=== PATIENT | female | born 1955 | race Caucasian/White ===

== ENCOUNTER 2020-08-04 11:11 | Outpatient (REF) | payer OTHER, SELFPAY ==
--- NOTE | ~2020-08-04 | MM_ITS ---
EXAMINATION: MM SCREENING DIGITAL BREAST TOMOSYNTHESIS, BILATERAL CLINICAL INFORMATION: Screening. Asymptomatic. The lifetime risk of breast cancer based on the Tyrer-Cuzick Model is 7%. COMPARISON: Mammography: 03/10/2019, 01/01/2018, 11/19/2016 TECHNIQUE: Digital breast tomosynthesis is performed in both the craniocaudal and mediolateral oblique views along with computer-aided detection (CAD). Synthesized 2D images are generated from the tomosynthesis. FINDINGS: There are scattered areas of fibroglandular density (ACR BI-RADS breast composition Category b). There are no significant masses, abnormal calcifications, or other abnormalities. The skin contours are unremarkable. MM/MM tomosynthesis screening BI IMPRESSION: No mammographic evidence of malignancy. ASSESSMENT: BI-RADS 1: Negative RECOMMENDATION: Routine annual mammography screening. This patient's information was entered into a reminder system with a target due date for their next mammogram.
== END 2020-08-04 11:12 | disposition home or self-care (01) ==
LOC: HO.MAMMO 11:11
PROVIDERS: Visit Provider Internal Medicine
DX: Z12.31 Encounter for screening mammogram for malignant neoplasm of breast (principal)
CPT/HCPCS: 77063; 77067

== ENCOUNTER 2021-08-06 11:17 | Outpatient (REF) | payer OTHER, SELFPAY ==
--- NOTE | ~2021-08-06 | MM_ITS ---
EXAMINATION: MM SCREENING DIGITAL BREAST TOMOSYNTHESIS, BILATERAL CLINICAL INFORMATION: Screening. Asymptomatic. The lifetime risk of breast cancer based on the Tyrer-Cuzick Model is 8%. COMPARISON: Mammography: 08/04/2020, 03/10/2019, 01/01/2018 TECHNIQUE: Digital breast tomosynthesis is performed in both the craniocaudal and mediolateral oblique views along with computer-aided detection (CAD). Synthesized 2D images are generated from the tomosynthesis. FINDINGS: There are scattered areas of fibroglandular density (ACR BI-RADS breast composition Category b). There are no significant masses, abnormal calcifications, or other abnormalities. No developing density. No significant changes. MM/MM tomosynthesis screening BI IMPRESSION: No mammographic evidence of malignancy. ASSESSMENT: BI-RADS 1: Negative RECOMMENDATION: Routine annual mammography screening. This patient's information was entered into a reminder system with a target due date for their next mammogram.
== END 2021-08-06 11:18 | disposition home or self-care (01) ==
LOC: HO.MAMMO 11:17
PROVIDERS: Visit Provider Internal Medicine
DX: Z12.31 Encounter for screening mammogram for malignant neoplasm of breast (principal)
CPT/HCPCS: 77063; 77067

== ENCOUNTER 2022-09-17 11:58 | Outpatient (REF) | payer MEDICARE, SELFPAY ==
--- NOTE | ~2022-09-17 | MM_ITS ---
EXAMINATION: MM SCREENING DIGITAL BREAST TOMOSYNTHESIS, BILATERAL CLINICAL INFORMATION: Screening. Asymptomatic. The lifetime risk of breast cancer based on the Tyrer-Cuzick Model is 8.1%. COMPARISON: Mammography: This study is compared with prior exams dating back to 2018. TECHNIQUE: Digital breast tomosynthesis is performed in both the craniocaudal and mediolateral oblique views along with computer-aided detection (CAD). Synthesized 2D images are generated from the tomosynthesis. FINDINGS: There are scattered areas of fibroglandular density (ACR BI-RADS breast composition Category b). There are no significant masses, abnormal calcifications, or other abnormalities. MM/MM tomosynthesis screening BI IMPRESSION: No mammographic evidence of malignancy. ASSESSMENT: BI-RADS BI-RADS 1 - Negative RECOMMENDATION: Routine annual mammography screening. 1 year F/U This examination should not preclude the clinical evaluation of a suspicious palpable abnormality. This patient's information was entered into a reminder system with a target due date for their next mammogram.
== END 2022-09-17 11:59 | disposition home or self-care (01) ==
LOC: HO.MAMMO 11:58
PROVIDERS: PCP Internal Medicine; Visit Provider Internal Medicine
DX: Z12.31 Encounter for screening mammogram for malignant neoplasm of breast (principal)
CPT/HCPCS: 77063; 77067

== ENCOUNTER → 2022-09-17 12:00 | Outpatient (BNV) | payer MEDICARE, SELFPAY | PROVIDERS: PCP Internal Medicine; Visit Provider Radiology Diagnostic Radiology | DX: Z12.31 Encounter for screening mammogram for malignant neoplasm of breast (principal) | CPT/HCPCS: 77063; 77067 ==

== ENCOUNTER 2023-09-23 09:22 | Outpatient (REF) | payer MEDICARE, SELFPAY | END 2023-09-23 09:23 | disposition home or self-care (01) | LOC: HO.MAMMO 09:22 | PROVIDERS: PCP Internal Medicine; Visit Provider Internal Medicine | DX: Z12.31 Encounter for screening mammogram for malignant neoplasm of breast (principal) | CPT/HCPCS: 77063; 77067 ==

== ENCOUNTER → 2023-09-23 09:30 | Outpatient (BNV) | payer MEDICARE, SELFPAY | PROVIDERS: PCP Internal Medicine; Visit Provider Radiology Diagnostic Radiology | DX: Z12.31 Encounter for screening mammogram for malignant neoplasm of breast (principal) | CPT/HCPCS: 77063; 77067 ==

== ENCOUNTER → 2024-05-10 16:08 | Outpatient (BNV) | payer MEDICARE, SELFPAY | PROVIDERS: Visit Provider Clinical Nurse Specialist Psychiatric/Mental Health | DX: F33.2 Major depressive disorder, recurrent severe without psychotic features (principal) | CPT/HCPCS: 99202; 99205 ==

== ENCOUNTER 2024-06-30 11:00 | Outpatient (RCR) | payer MEDICARE, SELFPAY ==
--- NOTE | 2024-05-10 13:43 | P.CONTMS_ITS ---
History of Present Illness General Data Date of Service: 05/10/2024 Reason for consult: Recurrent depression Requesting provider: Demetri Montilla History of Present Illness Pt is a 68 year old retired mother one adult son referred for TMS evaluation for Major Depression recurrent severe without psychotic fetures. Pt reports a 2 month period of worsening depression symptoms despite being on celexa 40mg daily and engaging in psychotherapy. She describes depressed mood, poor concentration, low motivation, low energy, loss of interest in activities, loss of pleasure and enjoyment of activities. She feels disconnected even when around people. she is more isolated since the pandemic, she at times feels awful and doesn't want to get out of bed or leave the house. She is often anxious especially in the morning. She makes herself exercise most days but it is a struggle and in contrast to when she used to look forward to it taking a walk or going to the gym. she often feels spacey and forgetful when she is anxious. She has low appetite but sleep is intact with medication. She has no SI or HI. no signs of psychosis or yovany. She reports a severe episode of depression 30 yrs ago when she became catatonic and psychotic; she was hospitalized at the time and she is fearful of getting that depressed again. She feels like sheis noticing the early signs of the same type of depression coming back. Pts PHQ9= 14 and GAD7= 7. Past Psychiatric History/Medication Trials: One Inpatient hospitalization at [facility] 30 yrs ago for severe depression Past med trials celexa ativan Prozac [facility], 1928–1983 Narrative: no histroy of seizures no cardiac histroy no metal implants no pacemaker no cochlear implants Family History: One of 5 children. she is second youngest. close to her sister. Lost her mother age 18. Grew up in [place]. Graduated with associates in Business. 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 Was volunteering until pandemic. She is single and lives alone. has one adult son whom she does see Social History: see above; Substance History: none Trauma History: loss of mother age 18 Meds/Allergies Meds Narrative: celexa 40 mg daily ativan 0.5mg at bedtime Allergies Allergies Allergy/AdvReac Type Severity Reaction Status Date / Time No Known Allergies Allergy Verified 05/10/24 13:53 Mental Status Exam Mental Status Exam Patient Appearance: Appropriate Patient Orientation: Person, Place, Time and Situation Level of Consciousness: Awake, Appropriate and Alert Patient Behavior: Talkative, Cooperative, Restless and Good Eye Contact Mood Description: Depressed, Anxious and Sad Affect Description: Flat Patient Cognition Impaired: No Ability to Follow Directions: Good Speech Pattern: Soft-Spoken Memory Description: Intact Hallucinations: None Delusions: Not Present Thought Process: Rumination and Slowed Thinking Thought Content: positive for Holliday and positive for Preoccupation Judgement: Good Assessment & Plan Assessment & Plan (1) Major depressive disorder, recurrent severe without psychotic features: Status: Acute Code(s): F33.2 - Major depressive disorder, recurrent severe without psychotic features Plan Pt is candidate fro TMS for the tretment of recurrent depression. She hashad trials of 2 antidepressants and does not want to change antidepressants fro fear of getting worse; she also does not want to add an adjunct agent due to fear of side effects. She has learned about TMS from a conference and would like to try TMS to improve depression and protect from worsening. She has no medical contraindications for TMS. No metal implants including no pacemaker or cochlear implants. no histroy of seizures, migraines or cardiac issues. No history of yovany. Plan: Recommned TMS Total time managing care of this patient today _70___ minutes. Patient educated on: TMS and therapeutic strategies Informed Consent: understands
--- NOTE | 2024-06-01 14:52 | HO.TMSDAILY2 ---
TMS Daily Progress Note Daily TMS Progress Note Date of Service: 06/01/24 Week #: 1 Treatment #(03-25): 1 PHQ-9 Pre-Treatment (-): 14 PHQ-9 Most Recent (03-22): 13 RAE-7 Pre-Treatment (0-21): 7 RAE-7 Most Recent (0-21): 12 Reviewed: TMS Mapping/Re-mapping completed Verification: I have reviewed the TMS Sales And Catering Coordinator Note and agree with the contents. The patient remains a candidate to continue TMS treatment per protocol. Assessment and Plan (1) Major depressive disorder, recurrent severe without psychotic features: Status: Acute Plan continue TMS tx plan Total time managing care of this patient today: 35 minutes.
--- NOTE | 2024-06-24 12:40 | HO.TMSDAILY2 ---
TMS Daily Progress Note Daily TMS Progress Note Date of Service: 06/21/24 Week #: 3 Treatment #(-): 12 PHQ-9 Pre-Treatment (-): 14 PHQ-9 Most Recent (03-22): 11 RAE-7 Pre-Treatment (0-21): 7 RAE-7 Most Recent (0-21): 9 CGI-I Most Recent: 0 = Not Assessed Reviewed: TMS Tech Note Reviewed Verification: I have reviewed the TMS Physician/Allergy/Immunology Note and agree with the contents. The patient remains a candidate to continue TMS treatment per protocol. Assessment and Plan (1) Major depressive disorder, recurrent severe without psychotic features: Status: Acute Plan continue with current treatment plan
--- NOTE | 2024-06-24 12:42 | HO.TMSDAILY2 ---
TMS Daily Progress Note Daily TMS Progress Note Date of Service: 06/22/24 Week #: 3 Treatment #(03-25): 13 PHQ-9 Pre-Treatment (-): 14 PHQ-9 Most Recent (03-22): 11 RAE-7 Pre-Treatment (0-21): 7 RAE-7 Most Recent (0-21): 9 CGI-I Most Recent: 0 = Not Assessed Reviewed: TMS Tech Note Reviewed Verification: I have reviewed the TMS Information Systems Supervisor Note and agree with the contents. The patient remains a candidate to continue TMS treatment per protocol. Assessment and Plan (1) Major depressive disorder, recurrent severe without psychotic features: Status: Acute Plan continue TMS treatment plan
--- NOTE | 2024-07-01 14:36 | HO.TMSDAILY2 ---
TMS Daily Progress Note Daily TMS Progress Note Date of Service: 07/01/24 Week #: 4 Treatment #(-30): 18 PHQ-9 Pre-Treatment (1-): 14 PHQ-9 Most Recent (03-22): 10 RAE-7 Pre-Treatment (0-21): 7 RAE-7 Most Recent (0-21): 7 CGI-I Most Recent: 0 = Not Assessed Reviewed: TMS Mapping/Re-mapping completed (remapping completed; AP/SOA changed slightly and coil lele the same; MT went from 1.06 to 1.05) Verification: I have reviewed the TMS Aircraft Designer Note and agree with the contents. The patient remains a candidate to continue TMS treatment per protocol. Assessment and Plan (1) Major depressive disorder, recurrent severe without psychotic features: Status: Acute (2) RAE (generalized anxiety disorder): Status: Acute Plan continue with TMS with remapping results. Total time managing care of this patient today: 30 minutes.
--- NOTE | 2024-07-15 12:37 | HO.TMSDAILY2 ---
TMS Daily Progress Note Daily TMS Progress Note Date of Service: 07/15/24 Week #: 1 Treatment #(03-25): 2 PHQ-9 Pre-Treatment (-): 14 PHQ-9 Most Recent (03-22): 13 RAE-7 Pre-Treatment (0-21): 7 RAE-7 Most Recent (0-21): 12 CGI-I Most Recent: 0 = Not Assessed Reviewed: TMS Tech Note Reviewed Verification: I have reviewed the TMS Sheet Manufacturing Supervisor Note and agree with the contents. The patient remains a candidate to continue TMS treatment per protocol. Assessment and Plan (1) Major depressive disorder, recurrent severe without psychotic features: Status: Acute Plan continue tms tx plan
--- NOTE | 2024-07-15 12:40 | HO.TMSDAILY2 ---
TMS Daily Progress Note Daily TMS Progress Note Date of Service: 06/07/24 Week #: 1 Treatment #(03-25): 4 PHQ-9 Pre-Treatment (-): 14 PHQ-9 Most Recent (03-22): 10 RAE-7 Pre-Treatment (0-21): 7 RAE-7 Most Recent (0-21): 9 CGI-I Most Recent: 0 = Not Assessed Reviewed: TMS Tech Note Reviewed Verification: I have reviewed the TMS Circulation Sales Representative Note and agree with the contents. The patient remains a candidate to continue TMS treatment per protocol. Assessment and Plan (1) Major depressive disorder, recurrent severe without psychotic features: Status: Acute Plan continue tms tx plan
--- NOTE | 2024-07-15 12:50 | HO.TMSDAILY2 ---
TMS Daily Progress Note Daily TMS Progress Note Date of Service: 06/08/24 Week #: 1 Treatment #(03-25): 5 PHQ-9 Pre-Treatment (-): 14 PHQ-9 Most Recent (03-22): 10 RAE-7 Pre-Treatment (0-21): 7 RAE-7 Most Recent (0-21): 9 CGI-I Most Recent: 0 = Not Assessed Reviewed: TMS Tech Note Reviewed Verification: I have reviewed the TMS Trauma Surgeon Note and agree with the contents. The patient remains a candidate to continue TMS treatment per protocol. Assessment and Plan (1) Major depressive disorder, recurrent severe without psychotic features: Status: Acute Plan continue tms tx plan
--- NOTE | 2024-07-15 12:51 | HO.TMSDAILY2 ---
TMS Daily Progress Note Daily TMS Progress Note Date of Service: 06/10/24 Week #: 2 Treatment #(-): 7 PHQ-9 Pre-Treatment (-): 14 PHQ-9 Most Recent (03-22): 10 RAE-7 Pre-Treatment (0-21): 7 RAE-7 Most Recent (0-21): 9 CGI-I Most Recent: 0 = Not Assessed Reviewed: TMS Tech Note Reviewed Verification: I have reviewed the TMS Risk Management Manager Note and agree with the contents. The patient remains a candidate to continue TMS treatment per protocol. Assessment and Plan (1) Major depressive disorder, recurrent severe without psychotic features: Status: Acute Plan continue tms tx plan
--- NOTE | 2024-07-15 12:52 | HO.TMSDAILY2 ---
TMS Daily Progress Note Daily TMS Progress Note Date of Service: 06/15/24 Week #: 2 Treatment #(-): 9 PHQ-9 Pre-Treatment (-): 14 PHQ-9 Most Recent (03-22): 9 RAE-7 Pre-Treatment (0-21): 7 RAE-7 Most Recent (0-21): 7 CGI-I Most Recent: 0 = Not Assessed Reviewed: TMS Tech Note Reviewed Verification: I have reviewed the TMS Director Of Institutional Research Note and agree with the contents. The patient remains a candidate to continue TMS treatment per protocol. Assessment and Plan (1) Major depressive disorder, recurrent severe without psychotic features: Status: Acute Plan continue tms tx plan
--- NOTE | 2024-07-15 12:53 | HO.TMSDAILY2 ---
TMS Daily Progress Note Daily TMS Progress Note Date of Service: 06/17/24 Week #: 2 Treatment #(-): 10 PHQ-9 Pre-Treatment (-): 14 PHQ-9 Most Recent (03-22): 9 RAE-7 Pre-Treatment (0-21): 7 RAE-7 Most Recent (0-21): 7 CGI-I Most Recent: 0 = Not Assessed Reviewed: TMS Tech Note Reviewed Verification: I have reviewed the TMS Emergency Department Technician Note and agree with the contents. The patient remains a candidate to continue TMS treatment per protocol. Assessment and Plan (1) Major depressive disorder, recurrent severe without psychotic features: Status: Acute Plan continue tms tx plan
--- NOTE | 2024-07-15 12:55 | P.PNPS_ITS ---
TMS Daily Progress Note Daily TMS Progress Note Date of Service: 06/24/24 Week #: 3 Treatment #(-): 15 PHQ-9 Pre-Treatment (-): 14 PHQ-9 Most Recent (03-22): 11 RAE-7 Pre-Treatment (0-21): 7 RAE-7 Most Recent (0-21): 9 CGI-I Most Recent: 0 = Not Assessed Reviewed: TMS Tech Note Reviewed Verification: I have reviewed the TMS Social Welfare Clerk Note and agree with the contents. The patient remains a candidate to continue TMS treatment per protocol. Assessment and Plan (1) Major depressive disorder, recurrent severe without psychotic features: Status: Acute Plan continue tms tx plan
--- NOTE | 2024-07-15 12:56 | P.PNPS_ITS ---
TMS Daily Progress Note Daily TMS Progress Note Date of Service: 06/28/24 Week #: 4 Treatment #(-): 17 PHQ-9 Pre-Treatment (1-): 14 PHQ-9 Most Recent (03-22): 10 RAE-7 Pre-Treatment (0-21): 7 RAE-7 Most Recent (0-21): 7 CGI-I Most Recent: 0 = Not Assessed Reviewed: TMS Tech Note Reviewed Verification: I have reviewed the [employer] Company Laundry Worker Note and agree with the contents. The patient remains a candidate to continue TMS treatment per protocol. Assessment and Plan (1) Major depressive disorder, recurrent severe without psychotic features: Status: Acute Plan continue tms tx plan
--- NOTE | 2024-07-15 12:57 | HO.TMSDAILY2 ---
TMS Daily Progress Note Daily TMS Progress Note Date of Service: 06/29/24 Week #: 4 Treatment #(-30): 18 PHQ-9 Pre-Treatment (1-): 14 PHQ-9 Most Recent (03-22): 10 RAE-7 Pre-Treatment (0-21): 7 RAE-7 Most Recent (0-21): 7 CGI-I Most Recent: 0 = Not Assessed Reviewed: TMS Mapping/Re-mapping completed Verification: I have reviewed the TMS Software Release Manager Note and agree with the contents. The patient remains a candidate to continue TMS treatment per protocol. Assessment and Plan (1) Major depressive disorder, recurrent severe without psychotic features: Status: Acute (2) RAE (generalized anxiety disorder): Status: Acute Plan continue tms tx plna with new mapping determination
--- NOTE | 2024-07-19 16:15 | P.PNPS_ITS ---
TMS Daily Progress Note Daily TMS Progress Note Date of Service: 06/30/24 Week #: 4 Treatment #(-): 19 PHQ-9 Pre-Treatment (1-): 14 PHQ-9 Most Recent (03-22): 10 RAE-7 Pre-Treatment (0-21): 7 RAE-7 Most Recent (0-21): 7 CGI-I Most Recent: 0 = Not Assessed Reviewed: TMS Tech Note Reviewed Verification: I have reviewed the TMS Toilet And Laundry Soap Supervisor Note and agree with the contents. The patient remains a candidate to continue TMS treatment per protocol. Assessment and Plan (1) Major depressive disorder, recurrent severe without psychotic features: Status: Acute (2) RAE (generalized anxiety disorder): Status: Acute Plan Patient tolerating treatment re mapping completed unfortunately to this point no improvement noted
--- NOTE | 2024-07-21 15:52 | HO.TMSDAILY2 ---
TMS Daily Progress Note Daily TMS Progress Note Date of Service: 06/25/24 Week #: 4 Treatment #(-): 16 PHQ-9 Pre-Treatment (-): 14 PHQ-9 Most Recent (03-22): 10 RAE-7 Pre-Treatment (0-21): 7 RAE-7 Most Recent (0-21): 7 CGI-I Most Recent: 0 = Not Assessed Reviewed: TMS Tech Note Reviewed Verification: I have reviewed the TMS Architectural Model Maker Note and agree with the contents. The patient remains a candidate to continue TMS treatment per protocol. Assessment and Plan (1) Major depressive disorder, recurrent severe without psychotic features: Status: Acute (2) RAE (generalized anxiety disorder): Status: Acute Plan Cont tx plan some improvement but limited
--- NOTE | 2024-07-21 15:56 | P.PNPS_ITS ---
TMS Daily Progress Note Daily TMS Progress Note Date of Service: 06/04/24 Week #: 1 Treatment #(03-25): 3 PHQ-9 Pre-Treatment (-): 14 PHQ-9 Most Recent (03-22): 13 RAE-7 Pre-Treatment (0-21): 7 RAE-7 Most Recent (0-21): 7 CGI-I Most Recent: 0 = Not Assessed Reviewed: TMS Tech Note Reviewed Verification: I have reviewed the TMS Professor Of Management Note and agree with the contents. The patient remains a candidate to continue TMS treatment per protocol. Assessment and Plan (1) Major depressive disorder, recurrent severe without psychotic features: Status: Acute (2) RAE (generalized anxiety disorder): Status: Acute Plan tolerating tx gradualinc in mt%
--- NOTE | 2024-07-21 15:59 | P.PNPS_ITS ---
TMS Daily Progress Note Daily TMS Progress Note Date of Service: 06/09/24 Week #: 2 Treatment #(-): 6 PHQ-9 Pre-Treatment (-): 14 PHQ-9 Most Recent (03-22): 10 RAE-7 Pre-Treatment (0-21): 7 RAE-7 Most Recent (0-21): 7 CGI-I Most Recent: 0 = Not Assessed Reviewed: TMS Tech Note Reviewed Verification: I have reviewed the TMS Document Imaging Specialist Note and agree with the contents. The patient remains a candidate to continue TMS treatment per protocol. Assessment and Plan (1) Major depressive disorder, recurrent severe without psychotic features: Status: Acute (2) RAE (generalized anxiety disorder): Status: Acute Plan cont plan of care engaged in tx
--- NOTE | 2024-07-21 16:03 | HO.TMSDAILY2 ---
TMS Daily Progress Note Daily TMS Progress Note Date of Service: 06/11/24 Week #: 2 Treatment #(-): 8 PHQ-9 Pre-Treatment (-): 14 PHQ-9 Most Recent (03-22): 10 RAE-7 Pre-Treatment (0-21): 7 RAE-7 Most Recent (0-21): 7 CGI-I Most Recent: 0 = Not Assessed Reviewed: TMS Tech Note Reviewed Verification: I have reviewed the TMS Material Requisitioner Note and agree with the contents. The patient remains a candidate to continue TMS treatment per protocol. Assessment and Plan (1) Major depressive disorder, recurrent severe without psychotic features: Status: Acute (2) RAE (generalized anxiety disorder): Status: Acute Plan cont plan of care engaged in tx
--- NOTE | 2024-07-21 16:05 | HO.TMSDAILY2 ---
TMS Daily Progress Note Daily TMS Progress Note Date of Service: 06/18/24 Week #: 3 Treatment #(-): 11 PHQ-9 Pre-Treatment (-): 14 PHQ-9 Most Recent (03-22): 9 RAE-7 Pre-Treatment (0-21): 7 RAE-7 Most Recent (0-21): 7 CGI-I Most Recent: 0 = Not Assessed Reviewed: TMS Tech Note Reviewed Verification: I have reviewed the TMS Case Loader Operator Note and agree with the contents. The patient remains a candidate to continue TMS treatment per protocol. Assessment and Plan (1) Major depressive disorder, recurrent severe without psychotic features: Status: Acute (2) RAE (generalized anxiety disorder): Status: Acute Plan Treatment patient relates some periods of anxiety in the morning
--- NOTE | 2024-07-21 16:08 | P.PNPS_ITS ---
TMS Daily Progress Note Daily TMS Progress Note Date of Service: 06/23/24 Week #: 3 Treatment #(03-25): 14 PHQ-9 Pre-Treatment (-): 14 PHQ-9 Most Recent (03-22): 11 RAE-7 Pre-Treatment (0-21): 7 RAE-7 Most Recent (0-21): 7 CGI-I Most Recent: 0 = Not Assessed Reviewed: TMS Tech Note Reviewed Verification: I have reviewed the TMS Cutter Apprentice Hand Note and agree with the contents. The patient remains a candidate to continue TMS treatment per protocol. Assessment and Plan (1) Major depressive disorder, recurrent severe without psychotic features: Status: Acute (2) RAE (generalized anxiety disorder): Status: Acute Plan Continue treatment plan limited response to this point
--- NOTE | 2024-07-21 16:10 | P.PNPS_ITS ---
TMS Daily Progress Note Daily TMS Progress Note Date of Service: 06/30/24 Week #: 4 Treatment #(03-25): 19 PHQ-9 Pre-Treatment (-): 14 PHQ-9 Most Recent (03-22): 11 RAE-7 Pre-Treatment (0-21): 7 RAE-7 Most Recent (0-21): 7 CGI-I Most Recent: 0 = Not Assessed Reviewed: TMS Tech Note Reviewed Verification: I have reviewed the TMS Scientific Laboratory Supervisor Note and agree with the contents. The patient remains a candidate to continue TMS treatment per protocol. Assessment and Plan (1) Major depressive disorder, recurrent severe without psychotic features: Status: Acute (2) RAE (generalized anxiety disorder): Status: Acute Plan Patient may need re mapping continues to feel she has significant dysphoria and anxiety
== END 2024-06-30 11:30 | disposition admitted as inpatient to this hospital (09) ==
LOC: HO.PTMS 11:00
PROVIDERS: Visit Provider Clinical Nurse Specialist Psychiatric/Mental Health
DX: F33.2 Major depressive disorder, recurrent severe without psychotic features (principal); F41.1 Generalized anxiety disorder
CPT/HCPCS: 90867; 90868; 90869

== ENCOUNTER 2024-07-01 11:25 | Inpatient (IN) | payer MEDICARE, OTHER, SELFPAY ==
--- NOTE | 2024-07-01 | ECG_ITS ---
Test Reason : psych Blood Pressure : */* mmHG Vent. Rate : 69 BPM Atrial Rate : 69 BPM P-R Int : 154 ms QRS Dur : 84 ms QT Int : 402 ms P-R-T Axes : 80 61 64 degrees QTcB Int : 430 ms Normal sinus rhythm Normal ECG No previous ECGs available Referred By: Margie Knapp Electronically Signed By: DIGNA NOLASCO
--- NOTE | 2024-07-01 11:27 | ED_ITS ---
HPI - Psych General Chief Complaint: Psychiatric Symptoms Stated Complaint: Crisis Time Seen by Provider: 07/01/24 12:00 Source: patient and family (patient's sister) Mode of arrival: ambulatory Limitations: no limitations History of Present Illness ED Provider: Margie Knapp PA-C HPI Narrative: Patient is a 68 year old assigned female at with a history of depression presenting to the emergency department today with increased depression and suicidal ideation. Patient states that since March of 2024 she has had worsening depression and increased suicidal ideation. Patient denies any dizziness, lightheadedness, abdominal pain, nausea, vomiting, fever, chills, blurry vision, double vision, loss of vision, chest pain, difficulty breathing, shortness of breath, back pain, night sweats, pain with urination, increased urinary frequency, increased urinary urgency, blood in her urine or stool, syncope or a near syncopal episode, recent trauma or falls, bowel incontinence, bladder incontinence, or any other complaints at this time. MD complaint: suicidal ideation and feels depressed Related Data Home Medications ?Medication ?Instructions ?Recorded ?Confirmed brimonidine 0.15 % eye drops 1 drp ophthalmic (eye) Q12H 07/01/24 07/01/24 citalopram 40 mg tablet 40 mg PO DAILY 07/01/24 07/01/24 latanoprost 0.005 % eye drops 1 drp ophthalmic (eye) BEDTIME 07/01/24 07/01/24 lorazepam 0.5 mg tablet 0.5 mg PO BID PRN anxiety 07/01/24 07/01/24 risankizumab-rzaa 150 mg/mL 150 mg subcut Q12W 07/01/24 07/01/24 subcutaneous pen injector (Skyrizi) timolol maleate 0.5 % eye drops 1 drp ophthalmic (eye) Q12H 07/01/24 07/01/24 Allergies Allergy/AdvReac Type Severity Reaction Status Date / Time No Known Allergies Allergy Verified 07/01/24 11:30 Review of Systems 2 Constitutional: Constitutional: Reports no additional constitutional complaints, Denies chills, Denies fever(s) and Denies night sweats Eyes: Eyes: Reports no additional eye complaints, Denies blurry vision, Denies change in vision, Denies diplopia, Denies eye discharge, Denies loss of vision and Denies eye pain ENT: Denies dizziness Cardiovascular: Cardiovascular: Reports no additional cardiovascular complaints, Denies chest pain, Denies lightheadedness, Denies Loss of Consciousness and Denies dyspnea Respiratory: Respiratory: Reports no additional respiratory complaints and Denies dyspnea Gastrointestinal: Gastrointestinal: Reports no additional gastrointestinal complaints, Denies abdominal pain, Denies melena, Denies hematochezia, Denies change in bowel habits and Denies change in stool character Genitourinary: Genitourinary: Denies hematuria, Denies urinary frequency, Denies dysuria, Denies urinary incontinence, Denies urinary hesitancy and Denies urinary urgency Musculoskeletal: Musculoskeletal: Reports no additional musculoskeletal complaints, Denies numbness and Denies tingling Neurologic: Denies dizziness, Denies loss of vision, Denies numbness and Denies tingling Psychiatric: Psychiatric: Reports no additional psychiatric complaints, Reports depression, Denies homicidal ideation and Reports suicidal ideation Endocrine: Endocrine: Reports no additional endocrine complaints Hematologic/Lymphatic: Hematologic/Lymphatic: Reports no additional hematologic/lymphatic complaints Allergic/Immunologic: Allergic/Immunologic: Reports no additional allergic/immunologic complaints PMFSH Past Medical History Attestation statement: The following information was validated with the patient. (all information validated with the patient's sister) Source: old records reviewed, obtained from family (patient's sister provided additional history and confirmed the history provided by the patient. ) and nursing notes reviewed Social History Social History Smoked in Last 30 Days: No Use of substances other than those prescribed or required for medical reasons: No Advance Directives: No Advance Directives Information Provided: Yes Physical Exam 2 Vital Signs: Vital Signs: Last Vital Signs Temp 98.4 F 07/01/24 11:29 Pulse 73 07/01/24 11:29 Resp 16 07/01/24 11:29 BP 154/82 H 07/01/24 11:29 Pulse Ox 99 07/01/24 11:29 O2 Del Method Room Air 07/01/24 11:29 BMI result Body Mass Index 18.2 Const: General: cooperative, no acute distress, alert and awake Nutritional Appearance: well nourished Orientation/consciousness: patient oriented x3 HEENT: Head: Yes normal to inspection and Yes atraumatic Ears: hearing grossly normal bilaterally and external ears normal General nose exam: Normal external nose present, no nasal discharge noted and no epistaxis Face and sinus: Yes normal facial exam, No abrasion and No laceration Mouth: Normal oral and palatal mucosa present, no drooling and no muffled voice Eyes: General: appearance normal, both eyes and all related structures P eriorbital: periorbital findings normal Eyelids: Yes eyelids normal C onjunctivae: conjunctivae normal Pupils: Equal, round and reactive pupils present EOM: EOMs intact bilaterally Neck: Neck: Yes normal visual inspection, Yes full ROM and Yes no lymphadenopathy Resp: Effort & Inspection: normal respiratory effort and able to speak in complete sentences Neuro: General: patient oriented x3, moves all extremities and CN's II-XI intact bilaterally Cranial nerves: Yes Equal, round and reactive pupils present Cognition (Neuro): normal cognition Extrem: General: Yes normal to inspection, Yes full ROM and Yes capillary refill normal Psych: Appearance: grossly normal Mental Status: mental status grossly normal Speech and movement: Normal speech and movement present Affect: Sad affect present Attitude: cooperative Thought content: Suicidality present Course Course Course Narrative: This is a rapid medical exam performed by Minna Anderson PHOTOGRAPHIC PLATE MAKER: Additional HPI, ROS, PE not included below will be deferred to primary provider. 68 yo female with PMHx of MDD, presents to ED due to increasing depression. She explains she had a very rough episode with depression after having her son 30 years ago. She is now experiencing increasing depression that feels like the major episode she had in the past after having her son. She states her anxiety in the morning after waking up is debilitating. She reports feeling worse and worse everyday and feels as if she is becoming non functioning. She states she does not want to be in this body anymore and feels overwhelmed. She reports she is taking Escitalopram and Ativan as needed and doing TMS treatments without effect. Denies HI, denies physical complaints. PE: A&O x3, tearful in triage, Plan: labs, UA, CASE, CARE team consult Reevaluation(s) Reevaluation #1: Time: 17:56 Date: 07/01/24 Provider: Donna Dash DO Physician observation ended at 556pm. Patient to be admitted as inpatient to psychiatry Medical Decision Making Medical Decision Making MDM Narrative: Patient is a 68 year old assigned female at with a history of depression presenting to the emergency department today with increased depression and suicidal ideation. Patient's physical exam was as noted in the physical exam portion of this note. Patient very tearful. Patient's blood work was unremarkable. Patient's urine showed no acute process. Patient's EKG was unremarkable. Patient was evaluated by the CARE team who recommended inpatient level of psychiatric care. Patient admitted by the [facility] psychiatric team to the [facility] psychiatric service. I explained my physical exam findings as well as all test results to the patient and the patient's sister. I answered all questions asked by the patient and the patient's sister. Patient and the patient's sister verbalized agreement and understanding with this treatment plan and admission. Differential Diagnosis Differential Diagnoses: The differential diagnosis associated with the presentation includes Suicidal ideation Depression Admission/Observation Consideration of admission/observation: Escalation of care including admission/observation considered Patient admitted to the [facility] Psychiatric service. Consult Healthcare Provider Management of the patient was discussed with: Behavioral Health Provider (spoke with the CARE team as noted in the MDM Rationale portion of this note. ) Lab Data [facility] Lab Attestation statement: I reviewed the patient's lab results. My interpretation of these results are in the MDM Rationale portion of this note. 07/01/24 12:41 07/01/24 12:41 Labs: Lab Results 07/01/24 07/01/24 Range/Units 12:41 12:48 WBC 8.7 (4.8-10.8) X10*3/uL RBC 4.27 (4.20-5.50) X10*6/uL Hgb 13.6 (12.0-16.0) g/dl Hct 37.9 (37.0-47.0) % MCV 88.8 (80.0-98.0) fL MCH 31.9 (27.0-33.0) pg MCHC 35.9 H (31.0-35.0) g/dl RDW 13.1 (11.0-16.0) % Plt Count 292 (160-400) X10*3/uL MPV 10.8 (9.4-12.3) fL Immature Gran % (Auto) 0.5 H (0.0-0.4) % Neut % (Auto) 71.1 (45-73) % Lymph % (Auto) 18.0 L (20-40) % [place] % (Auto) 7.5 (2-11) % Eos % (Auto) 1.5 (0-4) % Baso % (Auto) 1.4 (0-2) % Lymph # (Auto) 1.6 (1.2-4.9) X10*3/uL [place] # (Auto) 0.7 (0.1-1.2) X10*3/uL Eos # (Auto) 0.1 (0.0-0.4) X10*3/uL Baso # (Auto) 0.1 (0.0-0.2) X10*3/uL Abs Immat Gran (auto) 0.04 H (0.00-0.03) X10*3/uL Absolute Neuts (auto) 6.2 (2.0-8.3) x10*3/uL Absolute Nucleated RBC 0.000 (0.0-0.012) X10*3/uL Nucleated RBC % (auto) 0.0 (0.0-0.2) /100WBC Sodium 137 (135-145) mmol/L Potassium 4.1 (3.3-5.1) mmol/L Chloride 100 (96-108) mmol/L Carbon Dioxide 29 (22-29) mmol/L Anion Gap 12 (12-20) BUN 8 L (9-16) mg/dL Creatinine 0.66 (0.5-1.4) mg/dL Estim Creat Clear Calc 64.6 Estimated GFR > 60 Random Glucose 109 (60-115) mg/dL Calcium 9.9 (8.4-10.2) mg/dL Total Bilirubin 0.7 (0.0-1.0) mg/dL AST 22 (5-31) U/L ALT 21 (0-31) U/L Alkaline Phosphatase 39 (39-117) U/L Total Protein 6.9 (6.5-8.0) g/dL Albumin 4.4 (3.5-5.0) g/dL Urine Color Yellow Urine Appearance Clear Urine pH 8.0 (5.0-9.0) Ur Specific Mobile <= 1.005 (1.005-1.025) Urine Protein Negative (Neg-Trace) mg/dL Urine Glucose (UA) Negative (Negative) mg/dL Urine Ketones Negative (Negative) mg/dL Urine Blood Trace H (Negative) Urine Nitrite Negative (Negative) Ur Leukocyte Esterase Trace H (Negative) Urine RBC 3-5 H (0-2) /HPF Urine WBC 0-5 (0-5) /HPF Ur Squamous Epith Cells 0-2 (0-2) /HPF Urine Bacteria None Seen (None Seen) Hyaline Casts 0-2 (0-2) /LPF Urine Opiates Screen Not Detected (Not Detect) Ur Buprenorphine Scrn Not Detected (Not Detect) ng/mL Ur Oxycodone Screen Not Detected (Not Detect) ng/mL Urine Methadone Screen Not Detected (Not Detect) ng/mL Urine Fentanyl Screen Not Detected (Not Detect) Ur Barbiturates Screen Not Detected (Not Detect) Ur Phencyclidine Scrn Not Detected (Not Detect) Ur Amphetamines Screen Not Detected (Not Detect) U Benzodiazepines Scrn Not Detected (Not Detect) Urine Cocaine Screen Not Detected (Not Detect) U Marijuana (THC) Screen POSITIVE H (Not Detect) Ethyl Alcohol < 10 mg/dL Influenza Type A (PCR) NEGATIVE (Negative) Influenza Type B (PCR) NEGATIVE (Negative) RSV RNA Qual (PCR) NEGATIVE (Negative) SARS-CoV-2 RNA (RT-PCR) NEGATIVE (Negative) Independent Interpretation I performed an independent interpretation of an: EKG Interpretation: I independently interpreted this EKG and am in agreement with the below findings: Vent. Rate: 69 BPM Atrial Rate: 69 BPM P-R Int: 154 ms QRS Dur: 84 ms QT Int: 402 ms P-R-T Axes: 80 61 64 degrees QTcB Int: 430 ms Normal sinus rhythm Normal ECG No previous ECGs available DD/ 1352 Independent Historian Clinical information obtained from an independent historian. History obtained from or confirmed by: Other (patient's sister provided additional history and confirmed the history provided by the patient.) Critical Care Time Critical Care Time Critical Care Time: Yes Total Critical Care Time: 38 Attestation: I spent 38 minutes of Critical Care Time with this patient. This does not include time spent on separately reported billable procedures. Discharge Plan Discharge Clinical Impression: Depression, Suicidal ideation Patient Disposition: Admitted As Inpatient Interventions: Leake-Suicide Risk Severity Scale Last Done: 07/01/24 13:36
[2024-07-01 11:29] VITALS: BP 154/82; PULSE 73; RESP 16; TEMP 36.9; O2SAT 99; BMI 18.2
[2024-07-01 12:46] LABS: MANUAL DIFF FLAG NO
[2024-07-01 13:03] LABS: Basophils Absolute Auto 0.1 X10*3/uL (0.0-0.2); Basophils Percent Auto 1.4 % (0-2); Eosinophils Absolute Auto 0.1 X10*3/uL (0.0-0.4); Eosinophils Percent Auto 1.5 % (0-4); Hematocrit 37.9 % (37.0-47.0); Hemoglobin 13.6 g/dl (12.0-16.0); Imm Gran Abs Auto 0.04 X10*3/uL (0.00-0.03); Imm Gran Pct Auto 0.5 % (0.0-0.4); Lymphocytes Absolute Auto 1.6 X10*3/uL (1.2-4.9); Mean Corpuscular HGB Conc 35.9 g/dl (31.0-35.0); Mean Corpuscular Hemoglobin 31.9 pg (27.0-33.0); Mean Corpuscular Volume 88.8 fL (80.0-98.0); Mean Platelet Volume 10.8 fL (9.4-12.3); Monocytes Absolute Auto 0.7 X10*3/uL (0.1-1.2); Monocytes Percent Auto 7.5 % (2-11); Neutrophils Absolute Auto 6.2 x10*3/uL (2.0-8.3); Neutrophils Percent Auto 71.1 % (45-73); Platelet Count 292 X10*3/uL (160-400); Red Blood Count 4.27 X10*6/uL (4.20-5.50); Red Cell Distribution Width 13.1 % (11.0-16.0); White Blood Count 8.7 X10*3/uL (4.8-10.8)
[2024-07-01 13:07] LABS: Appearance Urine Clear; Color Urine Yellow; Glucose Urine UA Negative (Negative); Leukocyte Esterase Urine Trace (Negative); Nitrite Urine Negative (Negative); Specific Gravity - Urine <= 1.005 (1.005-1.025); UMIC TRIGGER UACC YES; Urine Blood Trace (Negative); Urine Ketones Negative (Negative); Urine Protein Negative (Neg-Trace)
[2024-07-01 13:07] LABS: Alanine Aminotransferase 21 U/L (0-31); Albumin Level 4.4 g/dL (3.5-5.0); Alkaline Phosphatase 39 U/L (39-117); Anion Gap 12 (12-20); Aspartate Amino Transferase 22 U/L (5-31); Bilirubin Total 0.7 mg/dL (0.0-1.0); Blood Urea Nitrogen 8 mg/dL (9-16); Calcium 9.9 mg/dL (8.4-10.2); Carbon Dioxide 29 mmol/L (22-29); Chloride 100 mmol/L (96-108); Creatinine Clr Calc Pharmacy 64.6; Estimated Glomerular Filt Rate > 60; Ethanol < 10 mg/dL; Glucose Random 109 mg/dL (60-115); Potassium 4.1 mmol/L (3.3-5.1); Sodium 137 mmol/L (135-145); Total Protein 6.9 g/dL (6.5-8.0)
[2024-07-01 13:10] LABS: Amphetamine Screen Urine Not Detected (Not Detect); Barbiturates, Urine Not Detected (Not Detect); Benzodiazepines Screen Urine Not Detected (Not Detect); Buprenorphine Scr Not Detected (Not Detect); Cannabinoid Screen Urine POSITIVE (Not Detect); Cocaine Screen Urine Not Detected (Not Detect); Fentanyl, urine Not Detected (Not Detect); Methadone Screen, Urine Not Detected (Not Detect); Opiate Screen Urine Not Detected (Not Detect); Oxycodone Screen Urine Not Detected (Not Detect); Phencyclidine Screen Urine Not Detected (Not Detect)
[2024-07-01 13:12] LABS: Bacteria Urine None Seen (None Seen); Hyaline Casts Urine 0-2 /LPF (0-2); Squamous Epithelial Cell Urine 0-2 /HPF (0-2); WBC Urine 0-5 /HPF (0-5)
[2024-07-01 13:30] LABS: Influenza A PCR NEGATIVE (Negative); Influenza B PCR NEGATIVE (Negative); Resp Syncy Virus RNA Qual PCR NEGATIVE (Negative); SARS COV2 PCR INHOUSE NEGATIVE (Negative)
--- NOTE | 2024-07-01 14:26 | PHA.MEDREC ---
Pharmacy Consult ? Medication Reconciliation Pharmacy has reviewed the medication reconciliation comlpeted by nursing. Pt says her first injection of Skyrizi was yesterday, 06/30.
[2024-07-01 18:47] VITALS: BP 128/72; PULSE 83; RESP 18; TEMP 36.7; O2SAT 97
--- NOTE | 2024-07-01 19:26 | PC.NURSE ---
Skin check completed with [facility]HAL[facility] and [facility]. Signs of rash which she reports is psoriasis. Otherwise unremarkable. Placed on 15 minute checks
[2024-07-01 19:27] VITALS: BMI 18.2
[2024-07-01 20:00] VITALS: BP 137/65; PULSE 72; RESP 16; TEMP 36.2; O2SAT 99
[2024-07-01] MEDS: Ibuprofen 600 MG TABLET PO (21:05)
[2024-07-01] MEDS: LORazepam 0.5 MG TABLET PO (21:55)
--- NOTE | 2024-07-02 01:36 | PC.ADMIT ---
Trudy is a 68 yo [place] female admitted to [facility] on a CV with DX of MDD, presented to the ED D/T increasing depression and disruption in her ability to execute ADL. She states her anxiety in the morning is debilitating. She reports feeling worse and worse everyday and Lexapro in addition to TMS treatment is not helping. She states she does not want to be in this body anymore and feels overwhelmed. Denies SI/AVH, and substance use history. Trudy is A/O x 4, steady gait, independent with ADL, speech normal rate, eye contact good, discharge goal is MH stabilization so she can function in life . Skin/contraband check completed, placed on 15 min unit safety observation.
[2024-07-02] MEDS: hydrOXYzine HCL 25 MG TABLET PO (06:44)
[2024-07-02 08:21] LABS: Estimated Average Glucose 120 mg/dL; Hemoglobin A1C 145.5222 umol/L; Hemoglobin A1c % 5.8 % (<6.0); Total Hemoglobin (HGBA1C) 3604.3624 umol/L
[2024-07-02 08:30] LABS: Alanine Aminotransferase 18 U/L (0-31); Albumin Level 4.5 g/dL (3.5-5.0); Alkaline Phosphatase 41 U/L (39-117); Anion Gap 13 (12-20); Aspartate Amino Transferase 22 U/L (5-31); Blood Urea Nitrogen 7 mg/dL (9-16); Carbon Dioxide 29 mmol/L (22-29); Chloride 98 mmol/L (96-108); Cholesterol 195 mg/dL (<200); Creatinine Clr Calc Pharmacy 56.1; Estimated Glomerular Filt Rate > 60; Glucose Random 132 mg/dL (60-115); HDL Cholesterol 53 mg/dL (>40); LDL Cholesterol Calculated 126 mg/dL (<100); Potassium 3.9 mmol/L (3.3-5.1); Sodium 136 mmol/L (135-145); Total Protein 6.9 g/dL (6.5-8.0); Triglycerides 81 mg/dL (<150)
[2024-07-02 08:34] VITALS: BP 121/74; PULSE 94; RESP 14; TEMP 36.6; O2SAT 98
[2024-07-02] MEDS: Escitalopram Oxalate 20 MG TABLET PO (08:36)
[2024-07-02] MEDS: Brimonidine Tartrate 0.2% Oph 5 ML BOTTLE 1 DROP EYE-BOTH ×2 (08:38→22:33)
[2024-07-02] MEDS: timoloL maleate 0.5 % Oph Sol 5 ML DRBTL 1 DROP EYE-BOTH ×2 (08:38→22:33)
--- NOTE | 2024-07-02 08:47 | P.HPPS_ITS ---
[facility] Date of Service: 07/02/24 Chief Complaint: SI Sources of Information: patient interviewed, chart reviewed and crisis/core team assessment reviewed HPI Subjective Notes: Saldaña Warning and Conditional Voluntary Narrative: Patient is a 68-year-old female with history of MDD, RAE, who self presented to [facility] due to inability to care for self and experiencing bad thoughts secondary to increased depression and anxiety. Per crisis report, patient self presented from [facility] reporting increased depression and anxiety. She reports receiving 20 sessions of TMS and has had no progress. Patient reports inability to care for self and experiencing bad thoughts. She believes medications are not helping her depression and anxiety. Patient reports this has been going on since March 2024 and more recently is unable to engage in daily activities. Tearful during assessment. Denies SI/HI/VH/AH. Patient reports she feels lost and defeated and not functional . Poor sleep and appetite. History of 1 inpatient psychiatric hospitalization on M5 in 1994. Has outpatient providers through [facility]. Utox positive for marijuana. Denies any other substance use. During admission assessment, patient presents alert and oriented x3. Calm and cooperative. Patient reports feeling anxious and depressed; patient stated, when I wake up I have really bad anxiety. I do not feel like I am functioning. Can not think straight. I do not feel like doing any of my regular stuff. Patient reports she felt a shift in March 2024 and she kept going downhill from there. Patient reports that she could not think of a precipitant. Patient has been receiving T MS through [facility]. Patient stated, I started to do GMS. I feel like I was getting worse with every treatment. I had a breakdown in went to the emergency room. Patient reports she has been taking citalopram for the past 20 years which has been beneficial. She reports 1 other inpatient psychiatric hospitalization 30 years ago for depression. Denies history of substance use. Denies history of SA/SIB. Patient has outpatient psychiatric providers through [facility]. Past Psychiatric History: History of 1 prior inpatient psychiatric hospitalization 30 years ago on M5. Has outpatient psychiatric providers through [facility]. Denies history of SA/SIB. She reports taking citalopram for the last 20 years. Medical Evaluation Reviewed: Yes PMF Family History: One of 5 children. she is second youngest. close to her sister. Lost her mother age 18. Grew up in [place]. Graduated with associates in Business. 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 Was volunteering until pandemic. She is single and lives alone. has one adult son whom she does see Social History: see above; Substance History: Denies Trauma History: loss of mother age 18 Diagnostics Vital Signs (24Hr): Vital Signs - 24 hr 07/01/24 11:29 07/01/24 18:47 07/01/24 20:00 Temperature 98.4 F 98.1 F 97.1 F Pulse Rate 73 83 72 Respiratory Rate 16 18 16 Blood Pressure 154/82 H 128/72 137/65 Pulse Oximetry 99 97 99 Oxygen Delivery Method Room Air Room Air Room Air 07/02/24 08:34 Temperature 97.9 F Pulse Rate 94 Respiratory Rate 14 Blood Pressure 121/74 Pulse Oximetry 98 Oxygen Delivery Method Room Air BMI result Body Mass Index 18.2 Labs 07/01/24 12:41 07/02/24 07:53 Labs: Laboratory Results - last 48 hr 07/01/24 07/01/24 07/02/24 12:41 12:48 07:53 WBC 8.7 RBC 4.27 Hgb 13.6 Hct 37.9 MCV 88.8 MCH 31.9 MCHC 35.9 H RDW 13.1 Plt Count 292 MPV 10.8 Immature Gran % (Auto) 0.5 H Neut % (Auto) 71.1 Lymph % (Auto) 18.0 L [place] % (Auto) 7.5 Eos % (Auto) 1.5 Baso % (Auto) 1.4 Lymph # (Auto) 1.6 [place] # (Auto) 0.7 Eos # (Auto) 0.1 Baso # (Auto) 0.1 Abs Immat Gran (auto) 0.04 H Absolute Neuts (auto) 6.2 Absolute Nucleated RBC 0.000 Nucleated RBC % (auto) 0.0 Sodium 137 136 Potassium 4.1 3.9 Chloride 100 98 Carbon Dioxide 29 29 Anion Gap 12 13 BUN 8 L 7 L Creatinine 0.66 0.76 Estim Creat Clear Calc 64.6 56.1 Estimated GFR > 60 > 60 Random Glucose 109 132 H Estimat Average Glucose 120 Hemoglobin A1c % 5.8 Calcium 9.9 10.0 Total Bilirubin 0.7 1.0 AST 22 22 ALT 21 18 Alkaline Phosphatase 39 41 Total Protein 6.9 6.9 Albumin 4.4 4.5 Triglycerides 81 Cholesterol 195 LDL Cholesterol, Calc 126 H HDL Cholesterol 53 Urine Color Yellow Urine Appearance Clear Urine pH 8.0 Ur Specific [place] <= 1.005 Urine Protein Negative Urine Glucose (UA) Negative Urine Ketones Negative Urine Blood Trace H Urine Nitrite Negative Ur Leukocyte Esterase Trace H Urine RBC 3-5 H Urine WBC 0-5 Ur Squamous Epith Cells 0-2 Urine Bacteria None Seen Hyaline Casts 0-2 Urine Opiates Screen Not Detected Ur Buprenorphine Scrn Not Detected Ur Oxycodone Screen Not Detected Urine Methadone Screen Not Detected Urine Fentanyl Screen Not Detected Ur Barbiturates Screen Not Detected Ur Phencyclidine Scrn Not Detected Ur Amphetamines Screen Not Detected U Benzodiazepines Scrn Not Detected Urine Cocaine Screen Not Detected U Marijuana (THC) Screen POSITIVE H Ethyl Alcohol < 10 Influenza Type A (PCR) NEGATIVE Influenza Type B (PCR) NEGATIVE RSV RNA Qual (PCR) NEGATIVE SARS-CoV-2 RNA (RT-PCR) NEGATIVE Meds/Allergies Meds Home Medications ?Medication ?Instructions ?Recorded ?Confirmed ?Type brimonidine 0.15 % eye drops 1 drp ophthalmic (eye) Q12H 07/01/24 07/01/24 History citalopram 40 mg tablet 40 mg PO DAILY 07/01/24 07/01/24 History latanoprost 0.005 % eye drops 1 drp ophthalmic (eye) BEDTIME 07/01/24 07/01/24 History lorazepam 0.5 mg tablet 0.5 mg PO BID PRN anxiety 07/01/24 07/01/24 History risankizumab-rzaa 150 mg/mL 150 mg subcut Q12W 07/01/24 07/01/24 History subcutaneous pen injector (Skyrizi) timolol maleate 0.5 % eye drops 1 drp ophthalmic (eye) Q12H 07/01/24 07/01/24 History Allergies Allergies Allergy/AdvReac Type Severity Reaction Status Date / Time acetaminophen [From Tylenol] Allergy Itching Verified 07/01/24 18:05 Mental Status Exam Mental Status Exam Patient Appearance: Appropriate Patient Orientation: Person, Place, Time and Situation Level of Consciousness: Awake and Alert Patient Behavior: Appropriate, Cooperative and Good Eye Contact Mood Description: Depressed and Anxious Affect Description: Depressed Ability to Follow Directions: Good Speech Pattern: Clear and Appropriate Memory Description: Intact Hallucinations: None Delusions: Not Present Thought Process: Intact and Goal Oriented Thought Content: positive for Intact Assessment & Plan Assessment & Plan (1) Major depressive disorder, recurrent severe without psychotic features: Status: Acute Code(s): F33.2 - Major depressive disorder, recurrent severe without psychotic features (2) RAE (generalized anxiety disorder): Status: Acute Code(s): F41.1 - Generalized anxiety disorder Plan Patient is a 68-year-old female with history of MDD, RAE, who self presented to [facility] due to inability to care for self and experiencing bad thoughts secondary to increased depression and anxiety. Plan: CV 15 minute safety checks Continue home medications Start: Abilify 2mg PO bedtime;risks/benefits reviewed Obtain collateral Encourage groups Discharge planning Patient educated on: diagnosis and medication risk/benefits Reason for continued inpatient stay Substantial Risk for: inability to function and med/psych decompensation Statement Statement: I have reviewed the history and physical and performed a pertinent examination on my patient. No changes have occurred unless specified. If the History and Physical was not performed prior to admission, the Hospitalist's service will be consulted for completing the admission physical. Time Spent With Patient Time: Total time managing care of this patient today _60___ minutes.
[2024-07-02] MEDS: LORazepam 0.5 MG TABLET PO ×2 (12:04→22:40)
[2024-07-02] MEDS: Ibuprofen 600 MG TABLET PO (12:56)
[2024-07-02] MEDS: LORazepam 0.5 MG TABLET 0.25 MG PO (17:19)
[2024-07-02 19:40] VITALS: BP 128/79; PULSE 87; RESP 16; TEMP 35.9; O2SAT 97
[2024-07-02] MEDS: ARIPiprazole 2 MG TABLET PO (22:33)
[2024-07-02] MEDS: Latanoprost 0.005 % Ophth Sol 2.5 ML DROPS 1 DROP EYE-BOTH (22:34)
[2024-07-03] MEDS: LORazepam 0.5 MG TABLET 0.25 MG PO ×2 (07:18→14:18)
[2024-07-03 08:00] VITALS: BP 116/63; PULSE 83; RESP 16; TEMP 36.8; O2SAT 98
[2024-07-03] MEDS: Escitalopram Oxalate 20 MG TABLET PO (09:21)
[2024-07-03] MEDS: timoloL maleate 0.5 % Oph Sol 5 ML DRBTL 1 DROP EYE-BOTH ×2 (09:24→22:58)
[2024-07-03] MEDS: Brimonidine Tartrate 0.2% Oph 5 ML BOTTLE 1 DROP EYE-BOTH ×2 (09:24→22:58)
--- NOTE | 2024-07-03 12:00 | HO.PSYCHPN ---
Subjective Subjective Date of Service: 07/03/24 Reason For Visit: SI Subjective Notes: Conditional Voluntary Interim History: Patient was seen and discussed in rounds today. Records and plans were reviewed. She continues to have anxiety and using her p.r.n. is effectively. Pacing which is also is helpful. Medication compliant. Eating and sleeping well. No SI. No changes were made today Review of Systems Review of Systems Yes all other systems are reviewed and are negative Mental Status Exam Mental Status Exam Patient Appearance: Appropriate Patient Orientation: Person, Place, Time and Situation Level of Consciousness: Awake and Alert Patient Behavior: Appropriate, Cooperative and Good Eye Contact Mood Description: Depressed and Anxious Affect Description: Depressed Ability to Follow Directions: Good Speech Pattern: Clear and Appropriate Memory Description: Intact Hallucinations: None Delusions: Not Present Thought Process: Intact and Goal Oriented Thought Content: positive for Intact Diagnostics Vital Signs (24Hr): Vital Signs - 24 hr 07/02/24 19:40 07/03/24 08:00 Temperature 96.7 F L 98.2 F Pulse Rate 87 83 Respiratory Rate 16 16 Blood Pressure 128/79 116/63 Pulse Oximetry 97 98 Oxygen Delivery Method Room Air Room Air BMI result Body Mass Index 18.2 Labs 07/01/24 12:41 07/02/24 07:53 Labs: Laboratory Results - last 48 hr 07/01/24 07/01/24 07/02/24 12:41 12:48 07:53 WBC 8.7 RBC 4.27 Hgb 13.6 Hct 37.9 MCV 88.8 MCH 31.9 MCHC 35.9 H RDW 13.1 Plt Count 292 MPV 10.8 Immature Gran % (Auto) 0.5 H Neut % (Auto) 71.1 Lymph % (Auto) 18.0 L [place] % (Auto) 7.5 Eos % (Auto) 1.5 Baso % (Auto) 1.4 Lymph # (Auto) 1.6 [place] # (Auto) 0.7 Eos # (Auto) 0.1 Baso # (Auto) 0.1 Abs Immat Gran (auto) 0.04 H Absolute Neuts (auto) 6.2 Absolute Nucleated RBC 0.000 Nucleated RBC % (auto) 0.0 Sodium 137 136 Potassium 4.1 3.9 Chloride 100 98 Carbon Dioxide 29 29 Anion Gap 12 13 BUN 8 L 7 L Creatinine 0.66 0.76 Estim Creat Clear Calc 64.6 56.1 Estimated GFR > 60 > 60 Random Glucose 109 132 H Estimat Average Glucose 120 Hemoglobin A1c % 5.8 Calcium 9.9 10.0 Total Bilirubin 0.7 1.0 AST 22 22 ALT 21 18 Alkaline Phosphatase 39 41 Total Protein 6.9 6.9 Albumin 4.4 4.5 Triglycerides 81 Cholesterol 195 LDL Cholesterol, Calc 126 H HDL Cholesterol 53 Urine Color Yellow Urine Appearance Clear Urine pH 8.0 Ur Specific [place] <= 1.005 Urine Protein Negative Urine Glucose (UA) Negative Urine Ketones Negative Urine Blood Trace H Urine Nitrite Negative Ur Leukocyte Esterase Trace H Urine RBC 3-5 H Urine WBC 0-5 Ur Squamous Epith Cells 0-2 Urine Bacteria None Seen Hyaline Casts 0-2 Urine Opiates Screen Not Detected Ur Buprenorphine Scrn Not Detected Ur Oxycodone Screen Not Detected Urine Methadone Screen Not Detected Urine Fentanyl Screen Not Detected Ur Barbiturates Screen Not Detected Ur Phencyclidine Scrn Not Detected Ur Amphetamines Screen Not Detected U Benzodiazepines Scrn Not Detected Urine Cocaine Screen Not Detected U Marijuana (THC) Screen POSITIVE H Ethyl Alcohol < 10 Influenza Type A (PCR) NEGATIVE Influenza Type B (PCR) NEGATIVE RSV RNA Qual (PCR) NEGATIVE SARS-CoV-2 RNA (RT-PCR) NEGATIVE Medications Medications Current Medications Al Hydroxide/Mg Hydroxide (Magnesium Hydrox/Alum Hydrox 30 Ml Oral.Susp) 30 ml PO Q6H PRN PRN Reason: Heartburn/Nausea Aripiprazole (Aripiprazole 2 Mg Tablet) 2 mg PO BEDTIME [facility] Last Admin: 07/02/24 22:33 Dose: 2 mg Brimonidine Tartrate (Brimonidine Tartrate 0.2% Oph 5 Ml Bottle) 1 drop EYE-BOTH BID [facility] Last Admin: 07/03/24 09:24 Dose: 1 drop Escitalopram Oxalate (Escitalopram Oxalate 20 Mg Tablet) 20 mg PO DAILY [facility] Last Admin: 07/03/24 09:21 Dose: 20 mg Hydroxyzine HCl (Hydroxyzine Hcl 25 Mg Tablet) 25 mg PO Q6H PRN PRN Reason: mild anxiety Last Admin: 07/02/24 06:44 Dose: 25 mg Ibuprofen (Ibuprofen 600 Mg Tablet) 600 mg PO Q6H PRN PRN Reason: Pain, Moderate(Pain Scale 4-6) Last Admin: 07/02/24 12:56 Dose: 600 mg Latanoprost (Latanoprost 0.005 % Ophth Silva 2.5 Ml Drops) 1 drop EYE-BOTH BEDTIME [facility] Last Admin: 07/02/24 22:34 Dose: 1 drop Lorazepam (Lorazepam 0.5 Mg Tablet) 0.5 mg PO BID PRN PRN Reason: anxiety Last Admin: 07/02/24 22:40 Dose: 0.5 mg Lorazepam (Lorazepam 0.5 Mg Tablet) 0.25 mg PO Q6H PRN PRN Reason: Anxiety Last Admin: 07/03/24 07:18 Dose: 0.25 mg Magnesium Hydroxide (Milk Of Magnesia 30 Ml Oral.Susp) 30 ml PO DAILY PRN PRN Reason: Constipation Timolol Maleate (Timolol Maleate 0.5 % Oph Silva 5 Ml Drbtl) 1 drop EYE-BOTH 0900,2100 [facility] Last Admin: 07/03/24 09:24 Dose: 1 drop Trazodone HCl (Trazodone Hcl 50 Mg Tablet) 50 mg PO BEDTIME MRX1 PRN PRN Reason: Insomnia Allergies Allergies Allergy/AdvReac Type Severity Reaction Status Date / Time acetaminophen [From Tylenol] Allergy Itching Verified 07/01/24 18:05 Assessment & Plan Assessment & Plan (1) Major depressive disorder, recurrent severe without psychotic features: Status: Acute Code(s): F33.2 - Major depressive disorder, recurrent severe without psychotic features (2) RAE (generalized anxiety disorder): Status: Acute Code(s): F41.1 - Generalized anxiety disorder Plan Patient is a 68-year-old female with history of MDD, RAE, who self presented to [facility] due to inability to care for self and experiencing bad thoughts secondary to increased depression and anxiety. Plan: CV 15 minute safety checks Continue home medications Start: Abilify 2mg PO bedtime;risks/benefits reviewed Obtain collateral Encourage groups Discharge planning 07/03: Continue current regimen and plans Reason for continued inpatient stay Substantial Risk for: med/psych decompensation Time Spent With Patient Time: Total time managing care of this patient today ____ minutes.
[2024-07-03 20:05] VITALS: BP 128/56; PULSE 77; RESP 20; TEMP 36.7; O2SAT 98
[2024-07-03] MEDS: ARIPiprazole 2 MG TABLET PO (22:58)
[2024-07-03] MEDS: LORazepam 0.5 MG TABLET PO (22:58)
[2024-07-03] MEDS: Latanoprost 0.005 % Ophth Sol 2.5 ML DROPS 1 DROP EYE-BOTH (22:58)
[2024-07-04 07:55] VITALS: BP 105/58; PULSE 79; RESP 18; TEMP 36.3; O2SAT 98
[2024-07-04] MEDS: Escitalopram Oxalate 20 MG TABLET PO (08:27)
[2024-07-04] MEDS: timoloL maleate 0.5 % Oph Sol 5 ML DRBTL 1 DROP EYE-BOTH ×2 (08:27→22:30)
[2024-07-04] MEDS: Brimonidine Tartrate 0.2% Oph 5 ML BOTTLE 1 DROP EYE-BOTH ×2 (08:27→22:30)
--- NOTE | 2024-07-04 09:25 | HO.PSYCHPN ---
Subjective Subjective Date of Service: 07/04/24 Reason For Visit: SI Subjective Notes: Conditional Voluntary Interim History: Patient was seen and discussed in rounds today. Records and plans were reviewed. She has been doing a little better. Continues to be anxious but less so. No somatic complaints. Still pacing as a way of coping. She is generally more hopeful and future oriented. Eating and sleeping adequately. No changes were made today Review of Systems Review of Systems Yes all other systems are reviewed and are negative Mental Status Exam Mental Status Exam Patient Appearance: Appropriate Patient Orientation: Person, Place, Time and Situation Level of Consciousness: Awake and Alert Patient Behavior: Appropriate, Cooperative and Good Eye Contact Mood Description: Depressed and Anxious Affect Description: Depressed Ability to Follow Directions: Good Speech Pattern: Clear and Appropriate Memory Description: Intact Hallucinations: None Delusions: Not Present Thought Process: Intact and Goal Oriented Thought Content: positive for Intact Diagnostics Vital Signs (24Hr): Vital Signs - 24 hr 07/03/24 20:05 07/04/24 07:55 Temperature 98.0 F 97.3 F Pulse Rate 77 79 Respiratory Rate 20 18 Blood Pressure 128/56 L 105/58 L Pulse Oximetry 98 98 Oxygen Delivery Method Room Air Room Air BMI result Body Mass Index 18.2 Labs 07/01/24 12:41 07/02/24 07:53 Medications Medications Current Medications Al Hydroxide/Mg Hydroxide (Magnesium Hydrox/Alum Hydrox 30 Ml Oral.Susp) 30 ml PO Q6H PRN PRN Reason: Heartburn/Nausea Aripiprazole (Aripiprazole 2 Mg Tablet) 2 mg PO BEDTIME [facility] Last Admin: 07/03/24 22:58 Dose: 2 mg Brimonidine Tartrate (Brimonidine Tartrate 0.2% Oph 5 Ml Bottle) 1 drop EYE-BOTH BID [facility] Last Admin: 07/04/24 08:27 Dose: 1 drop Escitalopram Oxalate (Escitalopram Oxalate 20 Mg Tablet) 20 mg PO DAILY [facility] Last Admin: 07/04/24 08:27 Dose: 20 mg Hydroxyzine HCl (Hydroxyzine Hcl 25 Mg Tablet) 25 mg PO Q6H PRN PRN Reason: mild anxiety Last Admin: 07/02/24 06:44 Dose: 25 mg Ibuprofen (Ibuprofen 600 Mg Tablet) 600 mg PO Q6H PRN PRN Reason: Pain, Moderate(Pain Scale 4-6) Last Admin: 07/02/24 12:56 Dose: 600 mg Latanoprost (Latanoprost 0.005 % Ophth Silva 2.5 Ml Drops) 1 drop EYE-BOTH BEDTIME [facility] Last Admin: 07/03/24 22:58 Dose: 1 drop Lorazepam (Lorazepam 0.5 Mg Tablet) 0.5 mg PO BID PRN PRN Reason: anxiety Last Admin: 07/03/24 22:58 Dose: 0.5 mg Lorazepam (Lorazepam 0.5 Mg Tablet) 0.25 mg PO Q6H PRN PRN Reason: Anxiety Last Admin: 07/03/24 14:18 Dose: 0.25 mg Magnesium Hydroxide (Milk Of Magnesia 30 Ml Oral.Susp) 30 ml PO DAILY PRN PRN Reason: Constipation Timolol Maleate (Timolol Maleate 0.5 % Oph Silva 5 Ml Drbtl) 1 drop EYE-BOTH 0900,2100 [facility] Last Admin: 07/04/24 08:27 Dose: 1 drop Trazodone HCl (Trazodone Hcl 50 Mg Tablet) 50 mg PO BEDTIME MRX1 PRN PRN Reason: Insomnia Allergies Allergies Allergy/AdvReac Type Severity Reaction Status Date / Time acetaminophen [From Tylenol] Allergy Itching Verified 07/01/24 18:05 Assessment & Plan Assessment & Plan (1) Major depressive disorder, recurrent severe without psychotic features: Status: Acute Code(s): F33.2 - Major depressive disorder, recurrent severe without psychotic features (2) RAE (generalized anxiety disorder): Status: Acute Code(s): F41.1 - Generalized anxiety disorder Plan Patient is a 68-year-old female with history of MDD, RAE, who self presented [place] [facility] due to inability to care for self and experiencing bad thoughts secondary to increased depression and anxiety. Plan: CV 15 minute safety checks Continue home medications Start: Abilify 2mg PO bedtime;risks/benefits reviewed Obtain collateral Encourage groups Discharge planning 07/03: Continue current regimen and plans 07/04: Continue current regimen and plans Reason for continued inpatient stay Substantial Risk for: med/psych decompensation Time Spent With Patient Time: Total time managing care of this patient today ____ minutes.
[2024-07-04] MEDS: LORazepam 0.5 MG TABLET 0.25 MG PO ×2 (09:42→15:23)
[2024-07-04 20:00] VITALS: BP 121/60; PULSE 74; RESP 16; TEMP 37.2; O2SAT 98
[2024-07-04] MEDS: Ibuprofen 600 MG TABLET PO (20:44)
[2024-07-04] MEDS: Latanoprost 0.005 % Ophth Sol 2.5 ML DROPS 1 DROP EYE-BOTH (22:30)
[2024-07-04] MEDS: ARIPiprazole 2 MG TABLET PO (22:31)
[2024-07-04] MEDS: LORazepam 0.5 MG TABLET PO (22:33)
[2024-07-05 07:35] VITALS: BP 122/74; PULSE 89; RESP 14; TEMP 36.6; O2SAT 98
[2024-07-05] MEDS: Brimonidine Tartrate 0.2% Oph 5 ML BOTTLE 1 DROP EYE-BOTH ×2 (08:59→22:45)
[2024-07-05] MEDS: Escitalopram Oxalate 20 MG TABLET PO (08:59)
[2024-07-05] MEDS: timoloL maleate 0.5 % Oph Sol 5 ML DRBTL 1 DROP EYE-BOTH ×2 (09:00→22:45)
--- NOTE | 2024-07-05 16:14 | HO.PSYCHPN ---
Subjective Subjective Date of Service: 07/05/24 Reason For Visit: SI Interim History: discuss her psych Hx, from depression 30 years ago to recent sudden-onset depression. abilify added as augmentation. pt states she is less anxious in the past couple of days. reports amotivation and anergia. also discussed wellbutrin as an option. pt will discuss more with pura tomorrow. per staff, no issues. pleasant, cooperative. 5/10 anxiety. slept 7 hours. Mental Status Exam Mental Status Exam Narrative: adequately dressed and groomed. pleasant, cooperative. voluble. speech incr amount, nml rate, decr latency. thoughts linear and logical but also often digressive. affect moderately flexible, normo-intense, non-labile. mood anxious. no SI/HI/AVH expressed. Diagnostics Vital Signs (24Hr): Vital Signs - 24 hr 07/04/24 20:00 07/05/24 07:35 Temperature 98.9 F 97.9 F Pulse Rate 74 89 Respiratory Rate 16 14 Blood Pressure 121/60 122/74 Pulse Oximetry 98 98 Oxygen Delivery Method Room Air Room Air BMI result Body Mass Index 18.2 Labs 07/01/24 12:41 07/02/24 07:53 Medications Medications Current Medications Al Hydroxide/Mg Hydroxide (Magnesium Hydrox/Alum Hydrox 30 Ml Oral.Susp) 30 ml PO Q6H PRN PRN Reason: Heartburn/Nausea Aripiprazole (Aripiprazole 2 Mg Tablet) 2 mg PO BEDTIME [facility] Last Admin: 07/04/24 22:31 Dose: 2 mg Brimonidine Tartrate (Brimonidine Tartrate 0.2% Oph 5 Ml Bottle) 1 drop EYE-BOTH BID [facility] Last Admin: 07/05/24 08:59 Dose: 1 drop Escitalopram Oxalate (Escitalopram Oxalate 20 Mg Tablet) 20 mg PO DAILY [facility] Last Admin: 07/05/24 08:59 Dose: 20 mg Hydroxyzine HCl (Hydroxyzine Hcl 25 Mg Tablet) 25 mg PO Q6H PRN PRN Reason: mild anxiety Last Admin: 07/02/24 06:44 Dose: 25 mg Ibuprofen (Ibuprofen 600 Mg Tablet) 600 mg PO Q6H PRN PRN Reason: Pain, Moderate(Pain Scale 4-6) Last Admin: 07/04/24 20:44 Dose: 600 mg Latanoprost (Latanoprost 0.005 % Ophth Silva 2.5 Ml Drops) 1 drop EYE-BOTH BEDTIME [facility] Last Admin: 07/04/24 22:30 Dose: 1 drop Lorazepam (Lorazepam 0.5 Mg Tablet) 0.5 mg PO BID PRN PRN Reason: anxiety Last Admin: 07/04/24 22:33 Dose: 0.5 mg Lorazepam (Lorazepam 0.5 Mg Tablet) 0.25 mg PO Q6H PRN PRN Reason: Anxiety Last Admin: 07/04/24 15:23 Dose: 0.25 mg Magnesium Hydroxide (Milk Of Magnesia 30 Ml Oral.Susp) 30 ml PO DAILY PRN PRN Reason: Constipation Timolol Maleate (Timolol Maleate 0.5 % Oph Silva 5 Ml Drbtl) 1 drop EYE-BOTH 0900,2100 [facility] Last Admin: 07/05/24 09:00 Dose: 1 drop Trazodone HCl (Trazodone Hcl 50 Mg Tablet) 50 mg PO BEDTIME MRX1 PRN PRN Reason: Insomnia Allergies Allergies Allergy/AdvReac Type Severity Reaction Status Date / Time acetaminophen [From Tylenol] Allergy Itching Verified 07/01/24 18:05 Assessment & Plan Assessment & Plan (1) Major depressive disorder, recurrent severe without psychotic features: Status: Acute Code(s): F33.2 - Major depressive disorder, recurrent severe without psychotic features (2) RAE (generalized anxiety disorder): Status: Acute Code(s): F41.1 - Generalized anxiety disorder Plan Patient is a 68-year-old female with history of MDD, RAE, who self presented to [facility] due to inability to care for self and experiencing bad thoughts secondary to increased depression and anxiety. Plan: CV 15 minute safety checks Continue home medications Start: Abilify 2mg PO bedtime;risks/benefits reviewed Obtain collateral Encourage groups Discharge planning 07/03: Continue current regimen and plans 07/04: Continue current regimen and plans 07/05: consider wellbutrin augmentation due to c/o amotivation and anergia. pt to discuss with pura tomorrow. feeling somewhat less anxious over the past couple of days. Reason for continued inpatient stay Substantial Risk for: inability to function Time Spent With Patient Time: Total time managing care of this patient today _25___ minutes.
[2024-07-05 20:00] VITALS: BP 123/68; PULSE 89; RESP 16; TEMP 36.8; O2SAT 98
[2024-07-05] MEDS: ARIPiprazole 2 MG TABLET PO (22:46)
[2024-07-05] MEDS: Latanoprost 0.005 % Ophth Sol 2.5 ML DROPS 1 DROP EYE-BOTH (22:46)
[2024-07-05] MEDS: LORazepam 0.5 MG TABLET PO (22:48)
[2024-07-05] MEDS: Milk of Magnesia 30 ML ORAL.SUSP PO (22:52)
[2024-07-05] MEDS: Ibuprofen 600 MG TABLET PO (22:56)
[2024-07-06 07:30] VITALS: BP 142/71; PULSE 77; RESP 16; TEMP 35.9; O2SAT 100
[2024-07-06] MEDS: Brimonidine Tartrate 0.2% Oph 5 ML BOTTLE 1 DROP EYE-BOTH ×2 (08:40→22:38)
[2024-07-06] MEDS: timoloL maleate 0.5 % Oph Sol 5 ML DRBTL 1 DROP EYE-BOTH ×2 (08:40→22:38)
[2024-07-06] MEDS: Escitalopram Oxalate 20 MG TABLET PO (08:40)
--- NOTE | 2024-07-06 09:16 | P.PNPSI_ITS ---
Subjective Subjective Date of Service: 07/06/24 Reason For Visit: SI Subjective Notes: Conditional Voluntary Interim History: Active on unit. attending groups. Patient reports she feels her anxiety has decreased; pt stated, I feel calmer and the medication has helped with that but I still feel depressed . Pt reports she has not been able to sleep well while in the hospital. She is requesting for discharge soon d/t feeling the unit not being therapeutic for her. pt stated, I'd rather go home and wait to see my outpatient provider to change medications for my depression . denies SI/HI/VH/AH. Plan to discharge at the end of the week. Medication Compliance: Yes Side effects from medications: No Attending Groups: Yes Mental Status Exam Mental Status Exam Narrative: Pt is alert and oriented; behavior is cooperative and calm; dressed in casual attire; mood is described as depressed ; eye contact appropriate; Speech is normal rate, volume and not pressured; thought process is organized; Thought content is on tx; denies SI/HI/VH/AH. Diagnostics Vital Signs (24Hr): Vital Signs - 24 hr 07/05/24 20:00 07/06/24 07:30 Temperature 98.3 F 96.7 F L Pulse Rate 89 77 Respiratory Rate 16 16 Blood Pressure 123/68 142/71 H Pulse Oximetry 98 100 Oxygen Delivery Method Room Air Room Air BMI result Body Mass Index 18.2 Labs 07/01/24 12:41 07/02/24 07:53 Medications Medications Current Medications Al Hydroxide/Mg Hydroxide (Magnesium Hydrox/Alum Hydrox 30 Ml Oral.Susp) 30 ml PO Q6H PRN PRN Reason: Heartburn/Nausea Aripiprazole (Aripiprazole 2 Mg Tablet) 2 mg PO BEDTIME [facility] Last Admin: 07/05/24 22:46 Dose: 2 mg Brimonidine Tartrate (Brimonidine Tartrate 0.2% Oph 5 Ml Bottle) 1 drop EYE- BOTH BID [facility] Last Admin: 07/06/24 08:40 Dose: 1 drop Escitalopram Oxalate (Escitalopram Oxalate 20 Mg Tablet) 20 mg PO DAILY [facility] Last Admin: 07/06/24 08:40 Dose: 20 mg Hydroxyzine HCl (Hydroxyzine Hcl 25 Mg Tablet) 25 mg PO Q6H PRN PRN Reason: mild anxiety Last Admin: 07/02/24 06:44 Dose: 25 mg Ibuprofen (Ibuprofen 600 Mg Tablet) 600 mg PO Q6H PRN PRN Reason: Pain, Moderate(Pain Scale 4-6) Last Admin: 07/05/24 22:56 Dose: 600 mg Latanoprost (Latanoprost 0.005 % Ophth Silva 2.5 Ml Drops) 1 drop EYE-BOTH BEDTIME [facility] Last Admin: 07/05/24 22:46 Dose: 1 drop Lorazepam (Lorazepam 0.5 Mg Tablet) 0.5 mg PO BID PRN PRN Reason: anxiety Last Admin: 07/05/24 22:48 Dose: 0.5 mg Lorazepam (Lorazepam 0.5 Mg Tablet) 0.25 mg PO Q6H PRN PRN Reason: Anxiety Last Admin: 07/04/24 15:23 Dose: 0.25 mg Magnesium Hydroxide (Milk Of Magnesia 30 Ml Oral.Susp) 30 ml PO DAILY PRN PRN Reason: Constipation Last Admin: 07/05/24 22:52 Dose: 30 ml Timolol Maleate (Timolol Maleate 0.5 % Oph Silva 5 Ml Drbtl) 1 drop EYE-BOTH 0900,2100 [facility] Last Admin: 07/06/24 08:40 Dose: 1 drop Trazodone HCl (Trazodone Hcl 50 Mg Tablet) 50 mg PO BEDTIME MRX1 PRN PRN Reason: Insomnia Allergies Allergies Allergy/AdvReac Type Severity Reaction Status Date / Time acetaminophen [From Tylenol] Allergy Itching Verified 07/01/24 18:05 Assessment & Plan Assessment & Plan (1) Major depressive disorder, recurrent severe without psychotic features: Status: Acute Code(s): F33.2 - Major depressive disorder, recurrent severe without psychotic features (2) RAE (generalized anxiety disorder): Status: Acute Code(s): F41.1 - Generalized anxiety disorder Plan Patient is a 68-year-old female with history of MDD, RAE, who self presented to [facility] ER due to inability to care for self and experiencing bad thoughts secondary to increased depression and anxiety. Plan: CV 15 minute safety checks Continue home medications Start: Abilify 2mg PO bedtime;risks/benefits reviewed Obtain collateral Encourage groups Discharge planning 07/03: Continue current regimen and plans 07/04: Continue current regimen and plans 07/05: consider wellbutrin augmentation due to c/o amotivation and anergia. pt to discuss with pura tomorrow. feeling somewhat less anxious over the past couple of days. 07/06: Active on unit. attending groups. Patient reports she feels her anxiety has decreased; pt stated, I feel calmer and the medication has helped with that but I still feel depressed . Pt reports she has not been able to sleep well while in the hospital. She is requesting for discharge soon d/t feeling the unit not being therapeutic for her. pt stated, I'd rather go home and wait to see my outpatient provider to change medications for my depression . denies SI/HI/VH/AH. Plan to discharge at the end of the week; pt aware. Patient educated on: diagnosis, medication risk/benefits and therapeutic strategies Reason for continued inpatient stay Substantial Risk for: med/psych decompensation Time Spent With Patient Time: Total time managing care of this patient today _20___ minutes.
[2024-07-06 19:43] VITALS: BP 122/64; PULSE 85; RESP 16; TEMP 36; O2SAT 97
[2024-07-06] MEDS: Ibuprofen 600 MG TABLET PO (22:07)
[2024-07-06] MEDS: ARIPiprazole 2 MG TABLET PO (22:37)
[2024-07-06] MEDS: LORazepam 0.5 MG TABLET PO (22:37)
[2024-07-06] MEDS: Latanoprost 0.005 % Ophth Sol 2.5 ML DROPS 1 DROP EYE-BOTH (22:38)
[2024-07-07 08:00] VITALS: BP 126/72; PULSE 86; RESP 16; TEMP 36.4; O2SAT 98
[2024-07-07] MEDS: Escitalopram Oxalate 20 MG TABLET PO (08:59)
[2024-07-07] MEDS: timoloL maleate 0.5 % Oph Sol 5 ML DRBTL 1 DROP EYE-BOTH ×2 (09:00→22:41)
[2024-07-07] MEDS: Brimonidine Tartrate 0.2% Oph 5 ML BOTTLE 1 DROP EYE-BOTH ×2 (09:00→22:40)
--- NOTE | 2024-07-07 09:17 | HO.PSYCHPN ---
Subjective Subjective Date of Service: 07/07/24 Reason For Visit: SI Subjective Notes: Conditional Voluntary Interim History: Active on unit. attending groups. Patient continues to report low anxiety; pt stated, I feel stuck. I feel like my brain is on stop. I know its just a chemical imbalance and I have to be patient . discussed increasing Abilify; pt agreed. Abilify increased to 4mg PO bedtime. denies SI/HI/VH/AH. Plan to discharge home tomorrow and bridge with Martha Terry NP until she can see her psychiatrist outpatient. Medication Compliance: Yes Side effects from medications: No Attending Groups: Yes Mental Status Exam Mental Status Exam Narrative: Pt is alert and oriented; behavior is cooperative and calm; dressed in casual attire; mood is described as depressed ; eye contact appropriate; Speech is normal rate, volume and not pressured; thought process is organized; Thought content is on tx and discharge; denies SI/HI/VH/AH. Diagnostics Vital Signs (24Hr): Vital Signs - 24 hr 07/06/24 19:43 07/07/24 08:00 Temperature 96.8 F 97.5 F Pulse Rate 85 86 Respiratory Rate 16 16 Blood Pressure 122/64 126/72 Pulse Oximetry 97 98 Oxygen Delivery Method Room Air Room Air BMI result Body Mass Index 18.2 Labs 07/01/24 12:41 07/02/24 07:53 Medications Medications Current Medications Al Hydroxide/Mg Hydroxide (Magnesium Hydrox/Alum Hydrox 30 Ml Oral.Susp) 30 ml PO Q6H PRN PRN Reason: Heartburn/Nausea Aripiprazole (Aripiprazole 2 Mg Tablet) 2 mg PO BEDTIME [facility] Last Admin: 07/06/24 22:37 Dose: 2 mg Brimonidine Tartrate (Brimonidine Tartrate 0.2% Oph 5 Ml Bottle) 1 drop EYE-BOTH BID [facility] Last Admin: 07/07/24 09:00 Dose: 1 drop Escitalopram Oxalate (Escitalopram Oxalate 20 Mg Tablet) 20 mg PO DAILY [facility] Last Admin: 07/07/24 08:59 Dose: 20 mg Hydroxyzine HCl (Hydroxyzine Hcl 25 Mg Tablet) 25 mg PO Q6H PRN PRN Reason: mild anxiety Last Admin: 07/02/24 06:44 Dose: 25 mg Ibuprofen (Ibuprofen 600 Mg Tablet) 600 mg PO Q6H PRN PRN Reason: Pain, Moderate(Pain Scale 4-6) Last Admin: 07/06/24 22:07 Dose: 600 mg Latanoprost (Latanoprost 0.005 % Ophth Silva 2.5 Ml Drops) 1 drop EYE-BOTH BEDTIME [facility] Last Admin: 07/06/24 22:38 Dose: 1 drop Lorazepam (Lorazepam 0.5 Mg Tablet) 0.5 mg PO BID PRN PRN Reason: anxiety Last Admin: 07/06/24 22:37 Dose: 0.5 mg Lorazepam (Lorazepam 0.5 Mg Tablet) 0.25 mg PO Q6H PRN PRN Reason: Anxiety Last Admin: 07/04/24 15:23 Dose: 0.25 mg Magnesium Hydroxide (Milk Of Magnesia 30 Ml Oral.Susp) 30 ml PO DAILY PRN PRN Reason: Constipation Last Admin: 07/05/24 22:52 Dose: 30 ml Timolol Maleate (Timolol Maleate 0.5 % Oph Silva 5 Ml Drbtl) 1 drop EYE-BOTH 0900,2100 [facility] Last Admin: 07/07/24 09:00 Dose: 1 drop Trazodone HCl (Trazodone Hcl 50 Mg Tablet) 50 mg PO BEDTIME MRX1 PRN PRN Reason: Insomnia Allergies Allergies Allergy/AdvReac Type Severity Reaction Status Date / Time acetaminophen [From Tylenol] Allergy Itching Verified 07/01/24 18:05 Assessment & Plan Assessment & Plan (1) Major depressive disorder, recurrent severe without psychotic features: Status: Acute Code(s): F33.2 - Major depressive disorder, recurrent severe without psychotic features (2) RAE (generalized anxiety disorder): Status: Acute Code(s): F41.1 - Generalized anxiety disorder Plan Patient is a 68-year-old female with history of MDD, RAE, who self presented to [facility] ER due to inability to care for self and experiencing bad thoughts secondary to increased depression and anxiety. Plan: CV 15 minute safety checks Continue home medications Start: Abilify 2mg PO bedtime;risks/benefits reviewed Obtain collateral Encourage groups Discharge planning 07/03: Continue current regimen and plans 07/04: Continue current regimen and plans 07/05: consider wellbutrin augmentation due to c/o amotivation and anergia. pt to discuss with pura tomorrow. feeling somewhat less anxious over the past couple of days. 07/06: Active on unit. attending groups. Patient reports she feels her anxiety has decreased; pt stated, I feel calmer and the medication has helped with that but I still feel depressed . Pt reports she has not been able to sleep well while in the hospital. She is requesting for discharge soon d/t feeling the unit not being therapeutic for her. pt stated, I'd rather go home and wait to see my outpatient provider to change medications for my depression . denies SI/HI/VH/AH. Plan to discharge at the end of the week; pt aware. 07/07: Active on unit. attending groups. Patient continues to report low anxiety; pt stated, I feel stuck. I feel like my brain is on stop. I know its just a chemical imbalance and I have to be patient . discussed increasing Abilify; pt agreed. Abilify increased to 4mg PO bedtime. denies SI/HI/VH/AH. Plan to discharge home tomorrow and bridge with Martha Terry NP until she can see her psychiatrist outpatient. Patient educated on: diagnosis and medication risk/benefits Reason for continued inpatient stay Substantial Risk for: stable for discharge Time Spent With Patient Time: Total time managing care of this patient today _20___ minutes.
[2024-07-07] MEDS: LORazepam 0.5 MG TABLET 0.25 MG PO (16:12)
[2024-07-07 20:00] VITALS: PULSE 70; RESP 16; TEMP 37.4; O2SAT 97
[2024-07-07] MEDS: Ibuprofen 600 MG TABLET PO (22:33)
[2024-07-07] MEDS: ARIPiprazole 2 MG TABLET 4 MG PO (22:34)
[2024-07-07] MEDS: Latanoprost 0.005 % Ophth Sol 2.5 ML DROPS 1 DROP EYE-BOTH (22:40)
[2024-07-07] MEDS: LORazepam 0.5 MG TABLET PO (22:40)
[2024-07-08 07:54] VITALS: BP 133/60; PULSE 84; RESP 14; TEMP 36.7; O2SAT 99
[2024-07-08] MEDS: Escitalopram Oxalate 20 MG TABLET PO (08:16)
[2024-07-08] MEDS: timoloL maleate 0.5 % Oph Sol 5 ML DRBTL 1 DROP EYE-BOTH (08:17)
[2024-07-08] MEDS: Brimonidine Tartrate 0.2% Oph 5 ML BOTTLE 1 DROP EYE-BOTH (08:17)
--- NOTE | 2024-07-08 09:06 | PM.PSYDC ---
DS: Providers Provider Date of Service: 07/08/24 Date of admission: 07/01/24 15:18 Date of discharge: 07/08/24 Primary care physician: Jackelyn Coburn MD Admitting clinician: Jonna Hilario Attending physician on admission: Demetri Montilla Attending physician on discharge: Demetri Montilla Discharging clinician: Jonna Hilario DS: Diagnosis Discharge Diagnosis (1) Major depressive disorder, recurrent severe without psychotic features: Status: Acute (2) RAE (generalized anxiety disorder): Status: Acute DS: Medications Discharge Medications Home Medications: Home Medications ?Medication ?Instructions ?Recorded ?Confirmed brimonidine 0.15 % eye drops 1 drp ophthalmic (eye) Q12H 07/01/24 07/01/24 citalopram 40 mg tablet 40 mg PO DAILY 07/01/24 07/01/24 latanoprost 0.005 % eye drops 1 drp ophthalmic (eye) BEDTIME 07/01/24 07/01/24 lorazepam 0.5 mg tablet 0.5 mg PO BID PRN anxiety 07/01/24 07/01/24 risankizumab-rzaa 150 mg/mL 150 mg subcut Q12W 07/01/24 07/01/24 subcutaneous pen injector (Skyrizi) timolol maleate 0.5 % eye drops 1 drp ophthalmic (eye) Q12H 07/01/24 07/01/24 Previous Rx's ?Medication ?Instructions ?Recorded aripiprazole 2 mg tablet (Abilify) 4 mg (2 x 2 mg) PO BEDTIME 14 days 07/07/24 #28 tabs Mental Status Exam Mental Status Exam Narrative: Pt is alert and oriented; behavior is cooperative and calm; dressed in casual attire; mood is described as okay ; eye contact appropriate; Speech is normal rate, volume and not pressured; thought process is organized; Thought content is on tx and discharge; denies SI/HI/VH/AH. Data Data Completed and Pending Completed studies during hospitalization [Text1]: 07/01/24 07/01/24 07/02/24 12:41 12:48 07:53 WBC 8.7 RBC 4.27 Hgb 13.6 Hct 37.9 MCV 88.8 MCH 31.9 MCHC 35.9 H RDW 13.1 Plt Count 292 MPV 10.8 Immature Gran % (Auto) 0.5 H Neut % (Auto) 71.1 Lymph % (Auto) 18.0 L Donley % (Auto) 7.5 Eos % (Auto) 1.5 Baso % (Auto) 1.4 Lymph # (Auto) 1.6 Donley # (Auto) 0.7 Eos # (Auto) 0.1 Baso # (Auto) 0.1 Abs Immat Gran (auto) 0.04 H Absolute Neuts (auto) 6.2 Absolute Nucleated RBC 0.000 Nucleated RBC % (auto) 0.0 Sodium 137 136 Potassium 4.1 3.9 Chloride 100 98 Carbon Dioxide 29 29 Anion Gap 12 13 BUN 8 L 7 L Creatinine 0.66 0.76 Estim Creat Clear Calc 64.6 56.1 Estimated GFR > 60 > 60 Random Glucose 109 132 H Estimat Average Glucose 120 Hemoglobin A1c % 5.8 Calcium 9.9 10.0 Total Bilirubin 0.7 1.0 AST 22 22 ALT 21 18 Alkaline Phosphatase 39 41 Total Protein 6.9 6.9 Albumin 4.4 4.5 Triglycerides 81 Cholesterol 195 LDL Cholesterol, Calc 126 H HDL Cholesterol 53 Urine Color Yellow Urine Appearance Clear Urine pH 8.0 Ur Specific [place] <= 1.005 Urine Protein Negative Urine Glucose (UA) Negative Urine Ketones Negative Urine Blood Trace H Urine Nitrite Negative Ur Leukocyte Esterase Trace H Urine RBC 3-5 H Urine WBC 0-5 Ur Squamous Epith Cells 0-2 Urine Bacteria None Seen Hyaline Casts 0-2 Urine Opiates Screen Not Detected Ur Buprenorphine Scrn Not Detected Ur Oxycodone Screen Not Detected Urine Methadone Screen Not Detected Urine Fentanyl Screen Not Detected Ur Barbiturates Screen Not Detected Ur Phencyclidine Scrn Not Detected Ur Amphetamines Screen Not Detected U Benzodiazepines Scrn Not Detected Urine Cocaine Screen Not Detected U Marijuana (THC) Screen POSITIVE H Ethyl Alcohol < 10 Influenza Type A (PCR) NEGATIVE Influenza Type B (PCR) NEGATIVE RSV RNA Qual (PCR) NEGATIVE SARS-CoV-2 RNA (RT-PCR) NEGATIVE DS: Summary Hospital Course Hospital Course: Patient is a 68-year-old female with history of MDD, RAE, who self presented to [facility] ER due to inability to care for self and experiencing bad thoughts secondary to increased depression and anxiety. Per crisis report, patient self presented from [facility] reporting increased depression and anxiety. She reports receiving 20 sessions of TMS and has had no progress. Patient reports inability to care for self and experiencing bad thoughts. She believes medications are not helping her depression and anxiety. Patient reports this has been going on since March 2024 and more recently is unable to engage in daily activities. Tearful during assessment. Denies SI/HI/VH/AH. Patient reports she feels lost and defeated and not functional . Poor sleep and appetite. History of 1 inpatient psychiatric hospitalization on M5 in 1994. Has outpatient providers through [facility]. Utox positive for marijuana. Denies any other substance use. During admission assessment, patient presents alert and oriented x3. Calm and cooperative. Patient reports feeling anxious and depressed; patient stated, when I wake up I have really bad anxiety. I do not feel like I am functioning. Can not think straight. I do not feel like doing any of my regular stuff. Patient reports she felt a shift in March 2024 and she kept going downhill from there. Patient reports that she could not think of a precipitant. Patient has been receiving T MS through [facility]. Patient stated, I started to do GMS. I feel like I was getting worse with every treatment. I had a breakdown in went to the emergency room. Patient reports she has been taking citalopram for the past 20 years which has been beneficial. She reports 1 other inpatient psychiatric hospitalization 30 years ago for depression. Denies history of substance use. Denies history of SA/SIB. Patient has outpatient psychiatric providers through [facility]. Plan: CV 15 minute safety checks Continue home medications Start: Abilify 2mg PO bedtime;risks/benefits reviewed Obtain collateral Encourage groups Discharge planning consider wellbutrin augmentation due to c/o amotivation and anergia. feeling somewhat less anxious over the past couple of days. Active on unit. attending groups. Patient reports she feels her anxiety has decreased; pt stated, I feel calmer and the medication has helped with that but I still feel depressed . Pt reports she has not been able to sleep well while in the hospital. She is requesting for discharge soon d/t feeling the unit not being therapeutic for her. pt stated, I'd rather go home and wait to see my outpatient provider to change medications for my depression . denies SI/HI/VH/AH. Plan to discharge at the end of the week; pt aware. Active on unit. attending groups. Patient continues to report low anxiety; pt stated, I feel stuck. I feel like my brain is on stop. I know its just a chemical imbalance and I have to be patient . discussed increasing Abilify; pt agreed. Abilify increased to 4mg PO bedtime. denies SI/HI/VH/AH. Plan to discharge home tomorrow and bridge with Martha Terry NP until she can see her psychiatrist outpatient. Patient reports feeling okay today; she is looking forward to returning home. denies SI/HI/VH/AH. denies any side effects from increase in Abilify. Pt plans on following up with outpatient providers. Status at Discharge Cognitive/behavioral status at discharge: Patient has insight and demonstrates good judgment in terms of wanting to pursue treatment. Patient has a safety plan that includes presenting to the closest ER or calling 911 if feeling unsafe. Functional status at discharge: independent ambulation Overall status at discharge: patient is back to baseline Time Spent with Patient Time attestation: Total time managing care of this patient today _20___ minutes. Time spent: Less than 30 minutes Discharge Plan Discharge Anticipated Discharge Date/Time: 07/08/24 10:30 Patient Disposition: Home, Self-Care Discharge Diagnosis: MDD, RAE Referrals: Stephanie Terry [Other] - 07/22/24 9:00 am (In person appointment) Lubna Alonzo [Other] - 08/11/24 2:20 pm (In person appointment Please arrive 20 minutes prior to fill out paperwork. ) Jackelyn Coburn MD [Primary Care Provider] - 07/14/24 10:30 am (07-07-24 Your follow up appt has been scheduled for 07-14-24 @ 10:30am) Discharge Medications: New aripiprazole [Abilify] 2 mg Tablet 4 mg PO BEDTIME 14 Days Qty: 28 0RF Continued brimonidine 0.15 % drops 1 drp ophthalmic (eye) Q12H latanoprost 0.005 % drops 1 drp ophthalmic (eye) BEDTIME citalopram 40 mg tablet 40 mg PO DAILY lorazepam 0.5 mg tablet 0.5 mg PO BID PRN (Reason: anxiety) timolol maleate 0.5 % drops 1 drp ophthalmic (eye) Q12H Skyrizi 150 mg/mL pen injector 150 mg subcut Q12W Discharge Orders: Discharge Order (Routine); Ordered 07/08/24 Ordered By: Jonna Hilario Diet: Regular diet Activity on Discharge: As tolerated Stand Alone Forms: Patient Portal Discharge page, Community Support Print Language: Upper Sorbian Care Plan Goals: Maintain mood and safe behaviors Take medications as prescribed Practice coping skills Continue with outpatient providers and reach out to them as needed Health Concerns: Mood stability and behaviors Plan of Treatment: Follow up with your PCP, psychiatric provider and other outpatient providers regarding above concerns Take medications as prescribed Assessment: Patient has insight and demonstrates good judgment in terms of wanting to pursue treatment. Patient has a safety plan that includes presenting to the closest ER or calling 911 if feeling unsafe. Discharge Date/Time: 07/08/24 11:15
== END 2024-07-08 11:15 | disposition home or self-care (01) | DRG 885 ==
LOC: HO.ED 16:36 → HO.PADLT16 17:25
PROVIDERS: Registered Nurse Emergency; Admitting Provider Registered Nurse; Emergency Provider Emergency Medicine Emergency Medical Services; PCP Internal Medicine; Responsible Provider Registered Nurse; Visit Provider Psychiatry & Neurology Psychiatry
DX: F33.2 Major depressive disorder, recurrent severe without psychotic features (principal); R45.851 Suicidal ideations; F41.1 Generalized anxiety disorder; Z20.822 Contact with and (suspected) exposure to COVID-19; Z79.899 Other long term (current) drug therapy
CPT/HCPCS: 0241U; 36415; 80053; 80061; 80307; 81001; 81003; 83036; 85025; 93005; 99285; S9485

== ENCOUNTER → 2024-07-01 13:52 | Outpatient (BNV) | payer MEDICARE, SELFPAY | PROVIDERS: Admitting Provider Registered Nurse; Emergency Provider Emergency Medicine Emergency Medical Services; PCP Internal Medicine; Visit Provider Internal Medicine | DX: Z13.6 Encounter for screening for cardiovascular disorders (principal) | CPT/HCPCS: 93010 ==

== ENCOUNTER → 2024-07-01 15:18 | Outpatient (BNV) | payer MEDICARE, SELFPAY | PROVIDERS: Admitting Provider Registered Nurse; Emergency Provider Emergency Medicine Emergency Medical Services; PCP Internal Medicine; Responsible Provider Registered Nurse; Visit Provider Psychiatry & Neurology Psychiatry | DX: F33.2 Major depressive disorder, recurrent severe without psychotic features (principal); F41.1 Generalized anxiety disorder | CPT/HCPCS: 90792; 99231; 99232 ==

== ENCOUNTER 2024-07-22 08:48 | Outpatient (AMB) | payer MEDICARE, SELFPAY ==
--- NOTE | 2024-07-22 09:19 | A.OFFPSYCH_ITS ---
Intake Intake Visit Reasons: bridge appt Special Education Teacher Required: No Allergies acetaminophen [From Tylenol] Allergy (Verified 07/01/24 18:05) Itching Medication List - Last Reconciled 07/22/24 by Stephanie Terry APRN aripiprazole (Abilify) 4 mg (2 x 2 mg) PO BEDTIME 14 days brimonidine 0.15% 1 drp ophthalmic (eye) Q12H citalopram 40 mg PO DAILY latanoprost 0.005% 1 drp ophthalmic (eye) BEDTIME lorazepam 0.5 mg PO BID PRN risankizumab-rzaa (Skyrizi) 150 mg subcut Q12W timolol maleate 0.5% 1 drp ophthalmic (eye) Q12H HPI- Psychiatric Chief Complaint: bridge appt HPI Narrative: Pt seen today for Bridge appt following discharge from [facility] where she was started on abilify 2 mg and titrated up to 4mg daily; she has an appt with Dr Lubna Case on August 09. Pt was unable to get abilify 4 mg and her insurance wouldn't cover two 2 mg tabs so we discussed switching her to 5 mg daily. She is in agreement. She is feeling some improvement in depression but still feels tired,low enery and low motivation at times. she dneis SI or HI; no psychosis. no gabo. anxiety is minimal PHQ9=8 and GAD7=4. Past Psychiatric History: History of 1 prior inpatient psychiatric hospitalization 30 years ago on [facility]. Has outpatient psychiatric providers through [facility]. Denies history of SA/SIB. She reports taking citalopram for the last 20 years. Subjective Subjective Subjective Medication Compliance: Yes Side effects from medications: No Review of Systems Medical Review of Systems: unchanged Mental Status Exam Mental Status Exam Patient Appearance: Well Grooomed Patient Orientation: Person, Place, Time and Situation Level of Consciousness: Awake and Appropriate Patient Behavior: Appropriate and Cooperative Mood Description: Calm Affect Description: Calm Patient Cognition Impaired: No Ability to Follow Directions: Good Speech Pattern: Clear Memory Description: Intact Hallucinations: None Delusions: Not Present Thought Process: Intact and Goal Oriented Thought Content: positive for Intact and positive for Goal Oriented Judgement: Good Results Reviewed Results Reviewed: reviewed records from inpt adm including dc summary Assessment and Plan Assessment & Plan (1) Major depressive disorder, recurrent severe without psychotic features: Status: Acute Code(s): F33.2 - Major depressive disorder, recurrent severe without psychotic features (2) RAE (generalized anxiety disorder): Status: Acute Code(s): F41.1 - Generalized anxiety disorder Plan continuemedications and start abilify 5mg daily follow up with Dr Barber Case Medications: New aripiprazole (Abilify) 5 mg PO BEDTIME 30 tabs 0RF Discontinued aripiprazole (Abilify) Discontinued Reason: Doctor's Order 4 mg (2 x 2 mg) PO BEDTIME 14 days 28 tabs 0RF Counseling and coordination of Care Medication management counseling: Effectiveness, Side effects, Dosing range, Duration, Drug interaction and Adherence Diagnosis and Prognosis Counseling: Accuracy of diagnosis, Prognosis over time, Impact of diagnosis on life functions and Adequacy of current interventions Details: I spent 50 minutes reviewing the record, seeing the patient and documenting in the medical record. Counseling provided to the patient/caregiver as outlined below. Addressed patient/caregiver concerns regarding current medication regime including effective adherence. Addressed patient/caregiver concerns regarding diagnosis and prognosis including accuracy of diagnosis, prognosis over time, impact of diagnosis. Addressed patient/caregiver concerns regarding impact of recent stressors. [facility] Medical History (Updated 07/16/24 @ 00:00 by Sundeep Donato) Suicidal ideation Social History Household Members: None Housing: Other Do you presently have visiting nurse or other home services: No Patient Tobacco Use Status: Never used Tobacco e-Cigarette/Vaping Use: Never Used Second Hand Smoke Exposure: No Sexual orientation: Straight/Heterosexual Social History: see above; Substance History: Denies Trauma History: loss of mother age 18 Coding Level of Care Code Est Pt Level 5 (49255) Diagnoses Major depressive disorder, recurrent severe without psychotic features F33.2 RAE (generalized anxiety disorder) F41.1
== END 2024-07-22 10:01 | disposition home or self-care (01) ==
LOC: HO.HOP 08:48
PROVIDERS: PCP Internal Medicine; Visit Provider Clinical Nurse Specialist Psychiatric/Mental Health
DX: F33.2 Major depressive disorder, recurrent severe without psychotic features (principal); F41.1 Generalized anxiety disorder
CPT/HCPCS: 99214

== ENCOUNTER → 2024-07-22 08:48 | Outpatient (BNVA) | payer MEDICARE, SELFPAY | PROVIDERS: PCP Internal Medicine; Visit Provider Clinical Nurse Specialist Psychiatric/Mental Health | DX: F33.2 Major depressive disorder, recurrent severe without psychotic features (principal); F41.1 Generalized anxiety disorder; Z71.89 Other specified counseling | CPT/HCPCS: 99212 ==

== ENCOUNTER 2024-10-29 12:07 | Outpatient (REF) | payer MEDICARE, SELFPAY ==
--- NOTE | ~2024-10-29 | MM_ITS ---
EXAMINATION: MM SCREENING DIGITAL BREAST TOMOSYNTHESIS, BILATERAL CLINICAL INFORMATION: Screening. Asymptomatic. COMPARISON: Mammography: Comparison is made with available priors TECHNIQUE: Digital breast mammography with tomosynthesis is performed in both the craniocaudal and mediolateral oblique views along with computer-aided detection (CAD). FINDINGS: There are scattered areas of fibroglandular density (ACR BI-RADS breast composition Category b). There are no significant masses, abnormal calcifications, or other abnormalities. MM/MM tomosynthesis screening BI IMPRESSION: No mammographic evidence of malignancy. ASSESSMENT: BI-RADS BI-RADS 1 - Negative RECOMMENDATION: Routine annual mammography screening. 1 year F/U This examination should not preclude the clinical evaluation of a suspicious palpable abnormality. This patient's information was entered into a reminder system with a target due date for their next mammogram. Electronically signed by: Diana Giordano DO 11/01/2024 05:40 PM EDT
--- OUTSIDE RECORDS SUMMARY | 2024-10-29 12:45 | XMS_ITS | Clinical Summary ---
Author Organization [address] Address [address] [place] [address] [place] [address] Phone Care Team Providers Care Neonatal Critical Care Nurse Name Role Phone Jackelyn Coburn MD Primary Care Provider [phone] Allergies Active Allergy Reactions Criticality Noted Date Comments Other 07/24/2023 Seasonal Allergies Medications citalopram (CeleXA) 40 mg tablet Take 1 tablet (40 mg total) by mouth 1 (one) time each day. 01/29/2021 Active LORazepam (ATIVAN) 0.5 mg tablet 1/2-1 po bid prn anxiety or insomnia 01/29/2021 Active ARIPiprazole (ABILIFY) 2 mg tablet Take 1 tablet (2 mg total) by mouth 1 (one) time each day. Active Active Problems Problem Noted Date Diagnosed Date Hyperlipidemia 03/01/2024 Prediabetes 03/01/2024 Osteopenia 07/24/2023 Overview (07/14/2024): 07/18 T score spine -1.3 hip -2.5 History of COVID-19 11/12/2021 Vitamin D deficiency 06/27/2021 Psoriasis 02/29/2020 Polyp at cervical os 09/11/2017 Depression 11/22/2013 Immunizations Name Administration Dates Next Due Hepatitis B (Rdhbwtb-S-Wybvc , Recombivax HB-Adult) 19yo and older 09/29/2019,03/31/2019,03/03/2019 PPD Test 01/20/2019,01/10/2016,11/23/2015 Pfizer (ages 12 & older) Bivalent, COVID-19 01/25 Tdap Tetanus diptheria acell ular pertussis (Boostrix; Adacel) 7yo and older 11/23/2015 Surgical History Surgery Date Site/Laterality Comments COLONOSCOPY 08/02/2016 normal; repeat in 10 yrs SCREENING MAMMOGRAM 09/23/2023 Bilateral Medical History Medical History Date Comments Depression Psoriasis Prediabetes 03/01/2024 Vitamin D deficiency 06/27/2021 Osteopenia 07/24/2023 Hyperlipidemia 03/01/2024 Family History Medical History Relation Name Comments Hypertension Brother x 1 Lung cancer Father +smoker Other: ?CVA + cancer? Mother w hen patient was 17 Breast cancer Neg Hx Colon cancer Neg Hx Ovarian cancer Neg Hx Uterine cancer Neg Hx Relation Name Status Comments Brother x 1 Alive Father Maternal Grandfather Maternal Grandmother Mother Paternal Grandfather Paternal Grandmother Sister x 3 Alive Social History Tobacco Use Types Packs/Day Years Used Date Smoking Tobacco: Never Smokeless Tobacco: Never Tobacco Cessation:Counseling Given: Not Answered Alcohol Use Standard Drinks/Week Comments Yes 0 (1 standard drink = 0.6 oz pur e alcohol) Comments Unknown Sex and Gender Information Value Date Recorded Sex Assigned at Not on file Legal Sex Female 7:20 AM EST Gender Identity Not on file Sexual Orientation Not on file Obstetrics History Last Filed Vital Signs Vital Sign Reading Time Taken Comments Blood Pressure 98/58 07/14/2024 10:32 AM EDT Pulse 67 07/14/2024 10:32 AM EDT Temperature 36.8 C (98.3 F) 07/14/2024 10:32 AM EDT Respiratory Rate 14 07/14/2024 10:3 2 AM EDT Oxygen Saturation 98% 07/14/2024 10: 32 AM EDT Inhaled Oxygen Concentration - - Weight 50.8 kg (111 lb 14.4 oz) 025 10:32 AM EDT Height 162.6 cm (5' 4 ) 07/14/2024 10:3 2 AM EDT Body Mass Index 19.21 07/14/2024 10:32 AM EDT Plan of Treatment Upcoming Encounters Date Type Department Care Team (Late st Contact Info) Description 01/14/2025 11:00 AM EST Office Visit Adult Medicine [facility] [address] [place], [place] [phone] Annalee Phillips PA [address] [place], [place] Health Maintenance Due Date Last Done Comments Pneumococcal Vaccine: 50+ Years (1 of 1 - PCV) 2006 Zoster Vaccines (1 of 2) 2006 Falls Risk Assessment 02/02/2022 Social Influencers of Health Screening 02/02/2022 Depression Screening 02/25/2024 12/16/2023 COVID-19 Vaccine ( season) 2024 02/12/2022, 02/11/2021, 08/15/2020, Additional history exists Influenza Vaccine (#1) 2024 Medicare Annual Wellness Visit 12/15/2024 12/16/2023 Breast Cancer Screening 09/22/2025 09/23/2023 DTaP,Tdap,and Td Vaccines (2 - Td or Tdap) 11/22/2025 11/23/2015 Colorectal Cancer Screening: Colonoscopy 08/02/2026 08/02/2016 Cholesterol Screening (Lipid Panel) 06/16/2029 06/16/2024, 12/08/2023, 12/08/2023 RSV Immunization Adult Patients (1 - 1-dose 75+ series) 10/01/2031 Osteoporosis Screening (Bone Density Screening) 07/13/2034 07/13/2024, 05/08/2020 Hepatitis B Vaccines Completed 09/29/2019, 03/31/2019, 03/03/2019 Hepatitis C Screening Completed 06/16/2024, 018 HIB Vaccines Aged Out No longer eligi ble based on patient's age to complete this topic HPV Vaccines Aged Out No longer eligi ble based on patient's age to complete this topic Hepatitis A Vaccines Aged Out No long er eligible based on patient's age to complete this topic IPV Vaccines Aged Out No longer eligi ble based on patient's age to complete this topic MMR Vaccines Aged Out No longer eligi ble based on patient's age to complete this topic Meningococcal ACWY Vaccine Aged Out N o longer eligible based on patient's age to complete this topic Meningococcal B Vaccine Aged Out No l onger eligible based on patient's age to complete this topic RSV Immunization Patients Under 20 months Aged Out No longer eligible based on patient's age to complete this topic Varicella Vaccines Aged Out No longer eligible based on patient's age to complete this topic Procedures Procedure Name Priority Date/Time Associated Diagnosis Comments BD BONE DENSITY DXA AXIAL SKELETON Routine 07/13/2024 10:31 AM EDT Osteoporosis HEPATITIS C ANTIBODY Routine 06/16/2024 12:14 PM EDT Psoriasis vulgaris Drug therapy LIPID PANEL WITH REFLEX TO DIRECT LDL Routine 06/16/2024 12:14 PM EDT Psoriasis vulgaris Drug therapy DEPRESSION SCREENING Routine 12/16/2023 MAMMOGRAPHY Routine 09/23/2023 COLONOSCOPY Routine 08/02/2016 from Last 3 Months or Most Recently Relevant to Health Maintenance Results * BD Bone Density DXA Axial Skeleton (07/13/2024 10:31 AM EDT) Anatomical Region Laterality Modality Wrist, Hip, L-spine Bone Densito metry 07/13/2024 12:2 8 PM EDT Impressions 07/13/2024 12:31 PM EDT Osteoporosis by WHO criteria. The [facility] Department of Internal Medicine recommends using National Osteoporosis Foundation (NOF) guidelines in treatment decisions related to osteoporosis. NOF guidelines suggest considering treatment for postmenopausal women and men aged 50 or older presenting with the following: History of hip or vertebral fracture. T-score = -2.5 (DXA) at the femoral neck, total hip, or spine, after appropriate evaluation to exclude secondary causes. Low bone mass (T-score between -1.0 and -2.5 at the femoral neck or spine) AND a 10-year probability of a hip fracture = 3% OR a 10-year probability of a major osteoporosis-related fracture = 20% based on the [place]-adapted WHO algorithm Please note that all treatment decisions require clinical judgment and consideration of individual patient factors, including patient preferences, co-morbidities, previous drug use, risk factors not captured in the FRAX model (e.g., frailty, falls, vitamin D deficiency, increased bone turnover, interval significant decline in bone density) and possible under- or over-estimation of fracture risk by FRAX. Optional alternative screening schedule based on nabil Palma., [facility] March 14, 2011 for patients with osteopenia (based on hip BMD T-score) is as follows: * advanced osteopenia (T scores -2.00 to -2.49), BMD testing every year * moderate osteopenia (T scores -1.50 to -1.99), BMD testing every 5 years mild osteopenia or normal BMD (T scores -1.50 and higher), BMD testing every 15 years -------- FINAL REPORT -------- Dictated By: Kelly Prince Dictated Date: 07/13/2024 12:28 ET Assigned Physician: Kelly Prince Reviewed and Electronically Signed By: Kelly Prince Signed Date: 07/13/2024 12:31 ET Workstation ID: [id number] Transcribed By: Self Edit Transcribed Date: 07/13/2024 12:28 ET Narrative 07/13/2024 12:31 PM EDT BONE DENSITY SCAN (DEXA): FINDINGS: Lumbar Spine T-score is -1.3. (SD relative to 20-29 y/o adult) Z-score is 0.7. (SD relative to age matched peers) This is considered osteopenia by WHO criteria. Left Hip T-score is -2.5. Z-score is -0.8. This is considered osteoporosis by WHO criteria. Comparison exam(s): 05/08/2020. 2.7% loss of lumbar spine bone mineral density which is statistically significant at the 95% confidence level. No statistically significant change in left hip bone mineral density. Lateral survey view of the thoracolumbar spine shows minimal anterior wedging of T11. Procedure Note Kelly Prince MD - 07/13/2024 BONE DENSITY SCAN (DEXA): FINDINGS: Lumbar Spine T-score is -1.3. (SD relative to 20-29 y/o adult) Z-score is 0.7. (SD relative to age matched peers) This is considered osteopenia by WHO criteria. Left Hip T-score is -2.5. Z-score is -0.8. This is considered osteoporosis by WHO criteria. Comparison exam(s): 05/08/2020. 2.7% loss of lumbar spine bone mineraldensity which is statistically significant at the 95% confidence level.No statistically significant change in left hip bone mineral density. Lateral survey view of the thoracolumbar spine shows minimal anteriorwedging of T11. IMPRESSION: Osteoporosis by WHO criteria. The [facility] Department of Internal Medicine recommendsusing National Osteoporosis Foundation (NOF) guidelines in treatmentdecisions related to osteoporosis. NOF guidelines suggest consideringtreatment for postmenopausal women and men aged 50 or older presentingwith the following: History of hip or vertebral fracture. T-score = -2.5 (DXA) at the femoral neck, total hip, or spine, afterappropriate evaluation to exclude secondary causes. Low bone mass (T-score between -1.0 and -2.5 at the femoral neck or spine)AND a 10-year probability of a hip fracture = 3% OR a 10-year probabilityof a major osteoporosis-related fracture = 20% based on the [place]-adapted WHOalgorithm Please note that all treatment decisions require clinical judgment andconsideration of individual patient factors, including patientpreferences, co-morbidities, previous drug use, risk factors not capturedin the FRAX model (e.g., frailty, falls, vitamin D deficiency, increasedbone turnover, interval significant decline in bone density) and possibleunder- or over-estimation of fracture risk by FRAX. Optional alternative screening schedule based on nabil Palma., NEJMJanuary 2011 for patients with osteopenia (based on hip BMD T-score)is as follows: * advanced osteopenia (T scores -2.00 to -2.49), BMD testing every year * moderate osteopenia (T scores -1.50 to -1.99), BMD testing every 5years mild osteopenia or normal BMD (T scores -1.50 and higher), BMD testingevery 15 years -------- FINAL REPORT -------- Dictated By: Kelly Prince Dictated Date: 07/13/2024 12:28 ET Assigned Physician: Kelly Prince Reviewed and Electronically Signed By: Kelyl Prince Signed Date: 07/13/2024 12:31 ET Workstation ID: [id number] Transcribed By: Self Edit Transcribed Date: 07/13/2024 12:28 ET Annalee ALVARADO IMG DXA PROCEDURES Final Resu lt * Hepatitis C antibody (06/16/2024 12:14 PM EDT) [facility] Hepatitis C Antibody Negative Negative LAB CHEMISTRY METHOD 06/16/2024 4:42 PM EDT [facility] Blood Venous blood specimen / Unknown Venipuncture / Unknown 06/16/2024 12:14 PM EDT 06/16/2024 12:16 PM EDT Micheline ALVARADO LAB BLOOD ORDERABLES Joselyn l Result [facility] [address] [place] [address], * (ABNORMAL) Lipid panel with reflex to direct LDL (06/16/2024 12:14 PM EDT) [facility] Cholesterol 185 0 - 200 mg/dL LAB CHEMISTRY METHOD 06/16/2024 3:03 PM EDT [facility] Triglycerides 66 0 - 150 mg/dL LAB CHEMISTRY METHOD 06/16/2024 3:03 PM EDT [facility] HDL 52 >=40 mg/dL LAB CHEMISTRY METHOD 06/16/2024 3:03 PM EDT [facility] LDL Calculated 120(H) 0 - 100 mg/dL LAB CHEMISTRY METHOD 06/16/2024 3:03 PM EDT [facility] VLDL Cholesterol Brian 13.2 mg/dL LAB CHEMISTRY METHOD 06/16/2024 3:03 PM EDT [facility] Non HDL Chol. (LDL+VLDL) 133 <145 mg/dL LAB CHEMISTRY METHOD 06/16/2024 3:03 PM EDT [facility] Chol/HDL Ratio 3.6 0.0 - 4.4 LAB CHEMISTRY METHOD 06/16/2024 3:03 PM EDT [facility] Blood Venous blood specimen / Unknown Venipuncture / Unknown 06/16/2024 12:14 PM EDT 06/16/2024 12:16 PM EDT Micheline ALVARADO LAB BLOOD ORDERABLES Joselyn l Result [facility] [address] [place] [address], [place] [phone] * Depression Screening (12/16/2023) Depression Screening abstracted Historical Provider HEALTH MAINTENANCE Final Result * Mammography (09/23/2023) Mammogram abstract [place] /sr Anatomical Region Laterality Modality Other Historical Provider HEALTH MAINTENANCE Final Result * Colonoscopy (08/02/2016) Colonoscopy abstract [place] /sr Anatomical Region Laterality Modality Other Historical Provider HEALTH MAINTENANCE Final Result from Last 3 Months or Most Recently Relevant to Health Maintenance Insurance [place] Care Teams Neonatal Critical Care Nurse Relationship Specialty Start Date End Date Jackelyn Coburn MD [address] [place] [address] PCP - General Internal Medicine 08/22/20
--- OUTSIDE RECORDS SUMMARY | 2024-10-29 12:45 | XMS_ITS ---
Author Name [facility] Organization Unknown Care Team Organization Name Specialty Phone Email Start Date End Da te [facility] Jackelyn Coburn Primary Care 01/01/2022 4
== END 2024-10-29 12:08 | disposition home or self-care (01) ==
LOC: HO.MAMMO 12:07
PROVIDERS: PCP Internal Medicine; Visit Provider Internal Medicine
DX: Z12.31 Encounter for screening mammogram for malignant neoplasm of breast (principal)
CPT/HCPCS: 77063; 77067

== ENCOUNTER → 2024-10-29 12:15 | Outpatient (BNV) | payer MEDICARE, SELFPAY | PROVIDERS: PCP Internal Medicine; Visit Provider Internal Medicine | DX: Z12.31 Encounter for screening mammogram for malignant neoplasm of breast (principal) | CPT/HCPCS: 77063; 77067 ==

== ENCOUNTER 2025-02-19 16:47 | Outpatient (BNV) | payer MEDICARE, SELFPAY | END 2025-02-22 14:26 | PROVIDERS: Admitting Provider Psychiatry & Neurology Psychiatry; Emergency Provider Emergency Medicine; PCP Internal Medicine; Visit Provider Radiology Diagnostic Radiology | DX: R51.9 Headache, unspecified (principal) | CPT/HCPCS: 70450 ==

== ENCOUNTER → 2025-02-19 16:47 | Outpatient (BNV) | payer MEDICARE, SELFPAY | PROVIDERS: Admitting Provider Psychiatry & Neurology Psychiatry; Emergency Provider Emergency Medicine; PCP Internal Medicine; Visit Provider Psychiatry & Neurology Psychiatry | DX: F33.2 Major depressive disorder, recurrent severe without psychotic features (principal); F41.1 Generalized anxiety disorder | CPT/HCPCS: 90870; 99231 ==

== ENCOUNTER → 2025-02-19 16:47 | Outpatient (BNV) | payer MEDICARE, SELFPAY | PROVIDERS: Admitting Provider Psychiatry & Neurology Psychiatry; Emergency Provider Emergency Medicine; PCP Internal Medicine; Visit Provider Nurse Practitioner Family | DX: F41.1 Generalized anxiety disorder (principal) | CPT/HCPCS: 99221 ==

== ENCOUNTER → 2025-02-19 16:47 | Outpatient (BNV) | payer MEDICARE, SELFPAY | PROVIDERS: Admitting Provider Psychiatry & Neurology Psychiatry; Emergency Provider Emergency Medicine; PCP Internal Medicine; Visit Provider Psychiatry & Neurology Psychiatry | DX: F33.2 Major depressive disorder, recurrent severe without psychotic features (principal); F41.1 Generalized anxiety disorder | CPT/HCPCS: 99232 ==